=== PATIENT | female | born 1955 | race Caucasian/White ===

== ENCOUNTER → 2018-04-08 10:45 | Outpatient (CLI) | payer OTHER, SELFPAY | PROVIDERS: Family Provider Internal Medicine; PCP Internal Medicine; Referring Provider Nurse Practitioner Gerontology; Visit Provider Nurse Practitioner Gerontology | DX: R00.2 Palpitations (principal) | CPT/HCPCS: 93225; 93226 ==

== ENCOUNTER → 2018-07-11 10:07 | Outpatient (CLI) | payer OTHER, SELFPAY ==
--- NOTE | 2018-07-11 10:10 | BI_ITS ---
MAMMOGRAPHY - BILATERAL SCREENING REASON FOR EXAM: Female, 63 years old. Routine annual screening examination. PERTINENT HISTORY: Non-contributory. TECHNIQUE: Digital bilateral breast walker (3D mammographic acquisition) in the CC and MLO projections. 2-D mediolateral oblique (MLO) and craniocaudad (CC) views of both breasts were obtained. CAD: Full Field Digital Mammography with Computer Added Detection was performed. COMPARISON: Comparison is made with prior study dated June 27, 2017 and June 08, 2016. FINDINGS: Breast Composition: The breasts are heterogeneously dense, which may obscure small masses. There are no dominant masses or suspicious calcifications. Stable appearance of the benign-looking bilateral axillary lymph nodes. No other significant abnormalities are identified. There has been no significant change since the prior study. BI/SCREENING MAMM (CAD), BILAT IMPRESSION: Stable bilateral screening mammogram. Yearly follow-up mammogram recommended. (A) ASSESSMENT CATEGORY: BIRADS Category 2: Benign. A letter regarding these results will be sent to the patient by the facility within 30 days. Approximately 10% of breast cancers are not detected by mammography. A normal mammogram should not delay biopsy of a clinically suspicious abnormality. [id number] Electronically Signed: Jonathan Law MD at 12:56 EST , Service support ,
--- NOTE | 2018-07-11 10:15 | BD_ITS ---
STUDY: DUAL ENERGY X-RAY ABSORPTIOMETRY / DXA REASON FOR EXAM: Female, 63 years old. The patient is postmenopausal. No loss of height. TECHNIQUE: Bone Mineral Density (BMD) measurements of lumbar spine and bilateral hips were obtained. COMPARISON: Comparison is made with prior study dated June 08, 2015. FINDINGS: Lumbar Spine (L1-L4): g/cm2 (0.919) / T-score (-2.2) / Z-score (-0.9) Findings are suggestive of osteopenia with a high fracture risk. Left Femur Total: g/cm2 (0.781) / T-score (-1.8) / Z-score (-0.8) Left Femoral Neck: g/cm2 (0.639) / T-score (-2.9) / Z-score (-1.6) Right Femur Total: g/cm2 (0.700) / T-score (-2.4) / Z-score (-1.4) Right Femoral Neck: g/cm2 (0.605) / T-score (-3.1) / Z-score (-1.8) The T-Scores on the most recent prior examination were: Lumbar Spine (L1-L4): There has been improvement of bone density since the previous examination. Left Femur Total: which represents a worsening of 0.1%. Right Femur Total: which represents a worsening of 2.1%. BD/Dexa Bone Density Study IMPRESSION: The patient is considered osteoporotic as outlined below according to World Charly Organization (WHO) criteria with a high fracture risk. There has been worsening of bone density since the previous examination. Reference Information: The T-score is the number of standard deviations above or below the standard which is normal for young adults at their peak bone mineral density. The World Health Organization (WHO) interprets the T-scores as follows: Above -1 Normal bone density Between -1 and -2.5 Osteopenia Equal to / or below -2.5 Osteoporosis As a practical clinical guideline, osteopenia may be graded as follows: Mild -1 through -1.5 Moderate -1.6 through -2.0 Severe -2.1 through -2.4 The Z-score is the number of standard deviations above or below age-matched controls. A Z-score of less than -1.5 would be considered abnormal. References: 1. NIH Osteoporosis and Related Bone Diseases http://www.osteo.org 2. International Society for Clinical Densitometry http://www.iscd.org 3. National Osteoporosis Foundation http://www.nof.org Electronically Signed: Jonathan Law MD at 15:28 EST , Service support ,
== END ==
PROVIDERS: Family Provider Internal Medicine; PCP Internal Medicine; Referring Provider Internal Medicine; Visit Provider Internal Medicine
DX: Z78.0 Asymptomatic menopausal state (principal); Z12.31 Encounter for screening mammogram for malignant neoplasm of breast
CPT/HCPCS: 77063; 77067; 77080

== ENCOUNTER → 2018-09-10 15:22 | Outpatient (CLI) | payer OTHER, SELFPAY ==
--- NOTE | 2018-09-10 15:25 | RAD_ITS ---
STUDY: X-RAY - RIGHT SHOULDER REASON FOR EXAM: Neck and right arm pain for 1.5 weeks. TECHNIQUE: 4 view(s) of the shoulder. COMPARISON: None. FINDINGS: There is osteopenia. Normal glenohumeral articulation. There is mild acromioclavicular arthrosis. Normal acromion. Normal humeral head and visualized proximal humerus. The soft tissue structures are unremarkable. Normal visualized pulmonary apex. RAD/Shoulder min 2 Views IMPRESSION: Mild acromioclavicular arthrosis. Osteopenia. Electronically Signed: Ion Funk MD at 16:01 EDT Tel , Service support ,
--- NOTE | 2018-09-10 15:26 | RAD_ITS ---
STUDY: X-RAY - CERVICAL SPINE REASON FOR EXAM: Female, 63 years old. NECK AND RIGHT ARM PAIN TECHNIQUE: 5 view(s) of the cervical spine were obtained. COMPARISON: None FINDINGS: Normal anterior atlantoaxial articulation. Normal odontoid process. Normal cervical lordosis. There appears a small posterior disc osteophyte complex at C5-C6. There is mild uncovertebral joint hypertrophy at C4-5 C5-6 and C6-7 bilaterally . Subtle disc height loss at C5-6 noted. Mild encroachment upon the neural foramina secondary to uncovertebral joint hypertrophy is noted on the right at C4-5 and C5-6. The soft tissue structures are unremarkable. There appear surgical tacks associated with the left humerus. RAD/Cerv Spine 4 or 5 Views IMPRESSION: Degenerative spondylosis as described. There does appear uncovertebral joint hypertrophy asymmetric to the right at C4-5 and C5-6. Electronically Signed: Norah Kay MD at 11:04 EDT , Service support ,
== END ==
PROVIDERS: Family Provider Internal Medicine; PCP Internal Medicine; Referring Provider Nurse Practitioner; Visit Provider Nurse Practitioner
DX: M54.9 Dorsalgia, unspecified (principal); M25.511 Pain in right shoulder
CPT/HCPCS: 72050; 73030

== ENCOUNTER 2019-07-30 16:22 | Observation (INO) | payer OTHER, SELFPAY ==
[2018-10-07 12:30] VITALS: BMI 27.1
[2019-07-30] VITALS (15 sets, daily range): BP systolic 136–202; BP diastolic 70–97; PULSE 61–77; RESP 16–19; TEMP 36.4–36.6; O2SAT 96–99; BMI 28.1; BMI 22.7
--- NOTE | 2019-07-30 16:34 | RAD_ITS ---
STUDY: X-RAY CHEST REASON FOR EXAM: Female, 64 years old. STERNAL CHEST PAIN. TECHNIQUE: Single AP portable view of the chest. COMPARISON: None. FINDINGS: The lungs are clear and expanded. There is no demonstrated pleural abnormality. Normal size heart. Normal mediastinum and emerson. Normal visualized pulmonary arteries. Normal visualized aortic arch and descending thoracic aorta. Normal visualized thoracic spine. Normal visualized ribs, clavicles, and shoulders. There is no demonstrated abnormality of the visualized soft tissue structures of the upper abdomen. RAD/Chest 1 View (Portable) IMPRESSION: Normal x-ray examination of the chest. Electronically Signed: Ananth Yu MD at 16:59 EST Tel , Service support ,
--- NOTE | 2019-07-30 16:35 | EKG12_ITS ---
Test Reason : CP Blood Pressure : / mmHG Vent. Rate : 069 BPM Atrial Rate : 069 BPM P-R Int : 134 ms QRS Dur : 086 ms QT Int : 422 ms P-R-T Axes : 012 018 010 degrees QTc Int : 452 ms Normal sinus rhythm Nonspecific ST abnormality Abnormal ECG Confirmed by CANDACE LAMAR, ISAIAH ([id number]), video effects editor ALENA MESA ([id number]) on 08/01/2019 8:02:15 AM Referred By: GAGAN Confirmed By:LIBRADO MARIA MD
--- NOTE | 2019-07-30 16:35 | ED.DCSUM_ITS ---
- ER Visit Summary Date of Service: 07/30/19 Chief Complaint: Chest pain History of Present Illness: The patient is a 64 F who presents with chest pain began today. Patient states her pain feels like a heaviness over her upper chest. Patient admits to nausea but denies any vomiting. Patient denies any sh ortness of breath or diaphoresis. Patient does admit to some lightheadedness and dizziness. Patient also admits to some palpitations where she feels like her heart is racing. Patient states nothing makes it better or worse. Patient states she was able to take a nap this morning and her pain improved at that time. Patient states she went back to work and her pain became worse again. Physical Examination: Vital signs are stable except for an elevated blood pressure of 202/97. Patient is afebrile. Patient is in no acute distress. Oral mucosa is pink and moist. Neck is supple. Trachea is midline. There is no JVD. Heart was regular rate and rhythm. Lungs are clear and equal bilaterally. Abdomen is soft. Bowel sounds are normal. There is no tenderness. Cranial nerves II through XII are intact. There are no focal motor or sensory deficits noted. Extremities are intact. There is no calf tenderness or edema. Test Results: EKG shows normal sinus rhythm with a rate of 69. There are nonspecific ST-T wave changes. This was unchanged compared to previous EKG dated 04/26/2012. CBC, basic metabolic profile, and troponin were obtained were within normal limits. Portable chest x-ray was obtained. There is no acute cardiopulmonary process. This was interpreted by the radiologist and myself. Emergency Department Course and Treatment: Patient was given aspirin and sublingual nitroglycerin here. Patient's blood pressure improved to 169/84. Patient is chest pain improved. Patient has a HEART score of 4 and a GIANLUCA risk score of 1. Case was discussed with the hospitalist. Patient will be admitted for observation to the PCU. Patient understands and is agreeable with the plan. All questions were answered. Disposition: Admit to hospital Impression: Chest pain This note was generated with [employer] dictation software. It may contain incorrect words, spelling, and punctuation that were not noted in review of the chart prior to signing ED Disposition - Plan for ED Patient: Disposition: Acute Care Hospital [facility] Diagnosis: Chest pain Referrals: Karen Jessica DO [Primary Care Provider] -
[2019-07-30] MEDS: Aspirin 81 MG TAB.CHEW 324 MG PO (16:46)
[2019-07-30 16:58] LABS: Absolute Lymphocyte Count 3.07 X10^3/uL (0.83-4.51); Absolute Neutrophil Count 4.1 X10^3/uL (2.0-7.7); Basophil% 1.2 % (0-1); Eosinophil# 0.36 X10^3/uL; Eosinophils% 4.3 % (0-5); Hematocrit 42.1 % (37-47); Hemoglobin 14.3 g/dL (12.0-15.0); Lymphocyte # 3.07 X10^3/ul (4.0); Lymphocyte % 36.2 % (19-41); Mean Corpuscular Hgb 29.9 pg (27.0-32.0); Mean Corpuscular Volume 87.9 fL (81-99); Mean Platelet Vol. 9.5 fl (6.2-12.0); Monocyte# 0.78 X10^3/uL; Monocyte% 9.2 % (0-10); NRBC Flagged by Analyzer 0 % (0-5); Neutrophil # 4.13 X10^3/uL (2.7-7.7); Neutrophil % 48.7 % (47-70); Platelet Count 349 K/mm3 (150-450); RBC Distribution Width CV 13.2 % (11.6-14.6); RBC Distribution Width SD 42.5 fl (35.1-43.9); Red Blood Count 4.79 M/mm3 (4.2-5.4); White Blood Count 8.5 K/mm3 (4.4-11.0)
[2019-07-30 17:11] LABS: Anion Gap 4 (5-15); BUN 16 mg/dL (7-18); BUN/Creat Ratio 16.8 RATIO (10-20); Calcium,Total 9.4 mg/dL (8.5-10.1); Chloride 105 mmol/L (98-107); Creatinine, Serum 0.95 mg/dL (0.55-1.02); EST Glomerular Filtration Rate 63 mL/min (>60); Est Glom Filt Rate - Afr Amer 76 mL/min (>60); Estimated Creatinine Clearance 46.33 ml/min; Glucose 88 mg/dL (74-106); Potassium 3.8 mmol/L (3.5-5.1); Sodium Level 139 mmol/L (136-145)
[2019-07-30] MEDS: Nitroglycerin SL (ED/IMG/CATH) 0.4 MG TABLET SUBLINGUAL (17:33)
--- NOTE | 2019-07-30 18:38 | HP.PCM_ITS ---
History of Present Illness Date of Admission: 07/30/19 Chief Complaint: Chest pressure The patient is a 64 year old F with past medical history of depression and hypothyroidism. She was admitted through the ED on 07/30/2019 with a complaint of chest pain and pressure which started in the early hours of the day of admission. She described pain as right-sided, pressure-like, radiating up to the right side of her face, with waiting or relieving factors. She had associated lightheadedness and dizziness. 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 She is never had such chest pain before and has never had any heart issues. She does not have any long distance travel history and has never had any PE or DVT before. Admission in the ED, she was noted to have markedly elevated blood pressure with systolic being over 200. She states she does have a history of high blood pressure and her blood pressure was checked recently at her PCPs office and was in the normal range around 120 systolic. Vitals were otherwise stable. Initial troponin was negative and EKG showed no acute ST changes. CBC and BMP were unremarkable and chest x-ray showed no acute cardiopulmonary process. She has been admitted to be managed for chest pain rule out ACS. [] Past Medical History Allergies No Known Allergies Allergy (Verified 10/04/18 07:51) Home Medications: Ambulatory Orders Medication Instructions Recorded Celecoxib [Celebrex] 200 mg PO DAILY 07/30/19 Duloxetine Hcl [Cymbalta] 40 mg PO DAILY 07/30/19 Levothyroxine [Synthroid] 75 mcg PO DAILY 07/30/19 Surgical History: appendectomy, hysterectomy, - - Carpal tunnel surgery, shoulder surgery Psychiatric History: No pertinent psych hx [employer] ATTENDANT History: No pertinent B[employer] ATTENDANT history Lives: Spouse/ Significant Other Smoking Status: Never smoker Alcohol: None Drugs: None - *Family History Maternal History Items: Heart Disease, Hypertension Paternal History Items: Heart Disease Review of Systems Constitutional: Denies: Chills, Fever, Malaise, Weakness, Weight Change Eyes: Denies: Blurred vision HEENT: Denies: Head Aches, Sinus Congestion, Sinus Drainage Cardiovascular: Reports: Chest Pain, Chest Pressure, Heaviness, Light Headedness. Denies: Chest Tightness, Edema, Orthopnea, Palpitations, Syncope Respiratory: Denies: Cough, Shortness of Breath, Shortness of breath at rest, Shortness of breath upon exertion, Sputum production Gastrointestinal: Denies: Abdominal Pain, Nausea, Vomiting Genitourinary: Denies: Dysuria Musculoskeletal: Denies: Joint Pain, Joint Tenderness Skin: Denies: Rash, Wounds Neurological: Denies: Numbness, Tingling, Focal weakness Psychiatric: Denies: Anxiety, Depression, Homicidal Ideations, Suicidal Ideations Hematologic/ Lymphatic: Denies: Easy Bruising, Easy Bleeding VTE Information - Inpt Only VTE Present on Admission: No VTE Pharm Prophylaxis ordered?: Yes Patient Problems: Active and Suspected Problems Chest pain (Acute) - Physical Exam Vitals/I&O's: Vital Signs Temp Pulse Resp BP Pulse Ox 97.6 F L 74 16 161/85 H 98 07/30/19 16:23 07/30/19 17:53 07/30/19 17:53 07/30/19 17:53 07/30/19 17:53 Oxygen Delivery Method Room Air Weight: 149 lb 0.52 oz Body Mass Index (BMI) 28.1 General: Alert, Oriented x3, Cooperative, No apparent distress HEENT: Atraumatic, PERRLA, EOMI, Normocephalic Oral: Moist Mucosa Neck: Supple, No JVD, Negative Carotid Bruits Lungs: Clear to auscultation, Normal air movement, No rhonchi, No wheeze, No rales Cardiovascular: Regular rate, Regular Rhythm, Normal S1, Normal S2, No murmurs Abdomen: Bowel Sounds Present, Soft, Non Tender, Non-Distended, No Hepato- splenomegaly Extremities: No clubbing, No cyanosis, No edema, Capillary Refill Less than 3 Seconds Skin: No rashes, No breakdown Musculoskeletal: No Tenderness to Palpation of Joints or Extremities Lymphatic: No Cervical, Supraclavicular, or Inguinal Adenopathy Neurological: Cranial nerves II-XII grossly intact, Neuro grossly intact, Motor Exam 5/5 strength throughout Psych/Mental Status: Normal Affect, Appropriate, Alert and oriented to time, place, person, mood and affect Laboratory Results 07/30/19 16:38: WBC 8.5, RBC 4.79, Hgb 14.3, Hct 42.1, MCV 87.9, MCH 29.9, MCHC 34.0, RDW Std Deviation 42.5, RDW Coeff of Linda 13.2, Plt Count 349, MPV 9.5, Immature Gran % (Auto) 0.400, Neut % (Auto) 48.7, Lymph % (Auto) 36.2, Ray % (Auto) 9.2, Eos % (Auto) 4.3, Baso % (Auto) 1.2 H, Absolute Neuts (auto) 4.1, Absolute Lymphs (auto) 3.07, Nucleated RBC % 0 07/30/19 16:38: Sodium 139, Potassium 3.8, Chloride 105, Carbon Dioxide 30.0, Anion Gap 4 L, BUN 16, Creatinine 0.95, Estim Creat Clear Calc 46.33, Est GFR (MDRD) Af Amer 76, Est GFR (MDRD) Non-Af 63, BUN/Creatinine Ratio 16.8, Glucose 88, Calcium 9.4, Troponin I < 0.015 Diagnostic Data Chest X-Ray 07/30/19 16:34 IMPRESSION: Normal x-ray examination of the chest. Electronically Signed: Ananth Yu MD at 16:59 EST Tel , Service support , Current Medications Nitroglycerin (Nitrostat) 0.4 mg SUBLINGUAL Q5M PRN PRN Reason: Chest pain Last Admin: 07/30/19 17:33 Dose: 0.4 mg Documented by: Assessment/Plan All Active Problems Chest pain (Acute) 64 y/o admitted with a complaitn of chest pain, to r/o ACS 1. Chest pain to r.o ACS * Admit to PCU with telemetry. Initial troponin is negative. We will cycle. * Sublingual nitroglycerin as needed. P.o. aspirin 81 mg daily. * She does have a history of heart disease in both parents. 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 * Troponins remain negative, for stress test tomorrow. * 2. Hypertensive emergency: * Blood pressure was 202/97 and in association with chest pain, she qualifies with diagnosis of hypertensive emergency * Patient says she is not a known hypertensive and her blood pressure is usually well controlled. Blood pressure came down to around 170 after she was given sublingual nitroglycerin. * IV hydralazine PRN. If blood pressure does not trend downwards, will need to be started on BP medications by tomorrow. * Will get 2D echo. 3. Hypothyroidism: On Synthroid. 4. Depression: on Cymbalta. DVT prophylaxis: SCDs Code Visit OBSV E&M: [id number] Initial observation care L2
--- NOTE | 2019-07-30 19:19 | EKG12_ITS ---
Test Reason : CP ADMIT Blood Pressure : / mmHG Vent. Rate : 063 BPM Atrial Rate : 063 BPM P-R Int : 136 ms QRS Dur : 086 ms QT Int : 442 ms P-R-T Axes : 015 031 013 degrees QTc Int : 452 ms Normal sinus rhythm Normal ECG When compared with ECG of 30-JUL-2019 16:25, MANUAL COMPARISON REQUIRED, DATA IS UNCONFIRMED Confirmed by BRO REYEZ ([id number]), index editor ALENA MESA ([id number]) on 08/01/2019 1:16:42 PM Referred By: DR VALERO Confirmed By:BRO REYEZ
[2019-07-30 19:38] LABS: Cholesterol 233 mg/dL (200); High Density Lipoprotein 52 mg/dL; Triglycerides 123 mg/dL; Very Low Density Lipoprotein 25 mg/dL (5-40)
[2019-07-30] MEDS: Nitroglycerin (INPATIENT USE) 0.4 MG TAB.SUBL SUBLINGUAL (20:24)
[2019-07-30] MEDS: DULoxetine Hcl 20 MG Capsule 40 MG PO (21:30)
[2019-07-30] MEDS: Metoprolol Tartrate 25 MG Tablet 12.5 MG PO (21:31)
[2019-07-30] MEDS: MELATONIN 3 MG TABLET PO (23:17)
[2019-07-31] VITALS (10 sets, daily range): BP systolic 127–170; BP diastolic 70–83; PULSE 59–71; RESP 14–16; TEMP 36.3–36.8; O2SAT 93–97
[2019-07-31] MEDS: Levothyroxine 75 MCG Tablet PO (05:43)
[2019-07-31] MEDS: 0.9% Saline Lock 10 ML Syringe IV (05:44)
[2019-07-31] MEDS: Aspirin E.C. 81 MG Tablet PO (05:44)
[2019-07-31 05:45] LABS: Absolute Lymphocyte Count 2.33 X10^3/uL (0.83-4.51); Absolute Neutrophil Count 3.7 X10^3/uL (2.0-7.7); Basophil# 0.07 X10^3/uL; Eosinophils% 5.6 % (0-5); Hematocrit 43.3 % (37-47); Hemoglobin 14.2 g/dL (12.0-15.0); Lymphocyte # 2.33 X10^3/ul (4.0); Lymphocyte % 32.6 % (19-41); Mean Corp Hgb Conc 32.8 g/dL (32-36); Mean Corpuscular Hgb 29.1 pg (27.0-32.0); Mean Corpuscular Volume 88.7 fL (81-99); Mean Platelet Vol. 9.7 fl (6.2-12.0); Monocyte# 0.62 X10^3/uL; Monocyte% 8.7 % (0-10); NRBC Flagged by Analyzer 0 % (0-5); Neutrophil # 3.67 X10^3/uL (2.7-7.7); Neutrophil % 51.4 % (47-70); Platelet Count 326 K/mm3 (150-450); RBC Distribution Width CV 13.2 % (11.6-14.6); RBC Distribution Width SD 43.1 fl (35.1-43.9); Red Blood Count 4.88 M/mm3 (4.2-5.4); White Blood Count 7.1 K/mm3 (4.4-11.0)
--- NOTE | 2019-07-31 05:55 | ECHOD_ITS ---
Reason For Study: CHEST PAIN Procedure This was a 2D Doppler, Color Flow transthoracic echocardiogram. Exam performed in department. Left Ventricle Normal LV size. The estimated ejection fraction is 65 %. Normal diastology for age. No regional wall motion abnormalities noted. Right Ventricle Normal RV size. Normal systolic function. Atria Normal left atrium. Normal right atrium. No doppler evidence for ASD. Mitral Valve There is no mitral valve stenosis. No mitral valve insufficiency. Tricuspid Valve There is no tricuspid stenosis. Unable to estimate RV systolic pressure due to inadequate jet, pulmonary artery pressure probably normal. No tricuspid valve insufficiency. Aortic Valve Trisinus/trileaflet aortic valve. There is no aortic stenosis. No aortic valve insufficiency. Pulmonic Valve There is no pulmonic valvular stenosis. No pulmonic valve insufficiency. Great Vessels Normal aortic root. Pericardium/Pleural No pericardial effusion. MMode/2D Measurements & Calculations LVIDd: 3.7 cm IVSd: 0.96 cm Ao root diam: 3.2 cm LVIDs: 2.0 cm LVPWd: 1.0 cm RVDd: 2.6 cm FS: 44.9 % LAV(MOD-bp): 30.2 ml LA A4 area: 13.0 cm2 LA dimension(2D): 3.4 cm LAV(MOD-bp) Indexed: 17.1 ml/m2 LAV(MOD-sp2): 28.0 ml LAV(MOD-sp4): 31.7 ml RA A4 area: 9.9 cm2 Time Measurements MV dec time: 0.17 sec Doppler Measurements & Calculations MV E max emerson: 69.7 cm/sec Lat Peak E' Emerson: 5.0 cm/sec Med Peak E' Emerson: 6.6 cm/sec MV A max emerson: 84.5 cm/sec E/E' lat: 14.0 E/E' med: 10.6 MV E/A: 0.83 Ao V2 max: 96.8 cm/sec LV V1 max: 96.3 cm/sec PA V2 max: 135.9 cm/sec Ao max P.7 mmHg LV V1 max P.7 mmHg Interpretation Summary The estimated ejection fraction is 65 %. Normal diastology for age. Ordering Physician: Barby Bucio Referring Physician: Karen Jessica Performed By: Nancy Henry, OSVALDO, RVT
[2019-07-31 06:08] LABS: Anion Gap 5 (5-15); BUN 16 mg/dL (7-18); BUN/Creat Ratio 18.5 RATIO (10-20); Calcium,Total 8.8 mg/dL (8.5-10.1); Chloride 108 mmol/L (98-107); Creatinine, Serum 0.86 mg/dL (0.55-1.02); EST Glomerular Filtration Rate 71 mL/min (>60); Est Glom Filt Rate - Afr Amer 86 mL/min (>60); Estimated Creatinine Clearance 65.96 ml/min; Glucose 94 mg/dL (74-106); Magnesium 2.4 mg/dL (1.6-2.6); Sodium Level 142 mmol/L (136-145)
--- NOTE | 2019-07-31 11:57 | DCINST_ITS ---
- Discharge Diagnoses Current Active Problems: Current Active and Chronic Problems Chest pain (Acute) You will use the following diet at home:: No restrictions Discharge Activity: Return to Normal Activity Call your doctor if you observe: Shortness of breath, Dizziness, Fainting spells, Chest pain Allergies/Adverse Reactions: Allergies No Known Allergies Allergy (Verified 10/04/18 07:51) Medications to take at Discharge Celecoxib [Celebrex] 200 mg PO DAILY 07/30/19 Duloxetine Hcl [Cymbalta] 40 mg PO DAILY 07/30/19 Levothyroxine [Synthroid] 75 mcg PO DAILY 07/30/19 Primary Care Physician: Karen Jessica DO [Primary Care Provider] - Please follow up with your Primary Care Physician in: 1 Week Test Results: Test results from this visit will be discussed in further detail at your follow- up appointment, if applicable. Proposed Discharge Date: 07/31/19
[2019-07-31] MEDS: Acetaminophen 325 MG Tablet 650 MG PO (12:45)
[2019-07-31] MEDS: Metoprolol Tartrate 25 MG Tablet 12.5 MG PO (12:46)
--- NOTE | 2019-07-31 14:18 | STRESSREP ---
Stress Test Report Date: [07/31/19 ] Procedure: Exercise tolerance test/imaging study Indications: [chest pain] Consent: Per the patient Procedure: The patient exercised on a Perico protocol for [11 minutes] achieving a peak heart rate of [164] bpm ([103]% predicted maximal heart rate) with a peak blood pressure [150/96] mmHg and a peak MET capacity of [13.3] METs. The baseline ECG demonstrated [normal sinus rhythm]. The peak exercise ECG demonstrated no significant ischemic changes. EKG during recovery revealed no significant ischemic changes [There were no cardiac dysrhythmias pretest, during exercise, or recovery]. The functional capacity was considered excellent for age. There was [no complaint of chest discomfort during exercise or recovery]. The examination was discontinued secondary to achieving target heart rate. Impression: 1. Technically adequate (percent predicted maximal heart rate greater than 85%) exercise tolerance test 2. Stress test is negative for exercise-induced EKG changes of ischemia 3. The test test is negative for exercise-induced chest pain 4. Functional capacity is excellent for age 5. Nuclear images pending Myocardial perfusion imaging study: Technique: The patient was injected with 12 mCi of technetium 99m Cardiolite and subsequently rest SPECT Cardiolite nuclear imaging was obtained in the horizontal long, vertical long, and short axis views. The patient exercised on a Perico protocol. Please see above for details. The patient was injected with 36 mCi of technetium 99m Cardiolite and subsequently stress SPECT Cardiolite nuclear imaging was obtained in the horizontal long, vertical long, and short axis views. A gated Cardiolite study at peak stress was obtained. Interpretation: Rest and stress SPECT Cardiolite nuclear imaging status post realignment, normalization, and attenuation correction, demonstrates normal myocardial radioisotope uptake. The gated Cardiolite study demonstrates no significant regional wall motion abnormalities. The reported LVEF is greater than 70 %. Impression: 1. There is no evidence of significant ischemia or infarction. 2. The gated Cardiolite study reports an LVEF of greater than 70 %. This note was generated with SnapNamesation software. It may contain incorrect words, spelling, and punctuation that were not noted in checking the note before signing.
--- NOTE | 2019-07-31 14:28 | DS.PCM_ITS ---
<Carla Hurt - Last Filed: 07/31/19 14:39> Discharge Date and Diagnosis Date of Admission: 07/30/19 Date of Discharge: 07/31/19 - Primary Discharge Diagnosis Active and Suspected Problems 1. Chest pain, ACS ruled out 2. Hyperlipidemia 3. Hypertensive urgency on admission, resolved 4. Depression 5. Hypothyroidism Hospital Course and Treatment Imaging Results: Diagnostic Data Chest X-Ray 07/30/19 16:34 IMPRESSION: Normal x-ray examination of the chest. Electronically Signed: Ananth Yu MD at 16:59 EST Tel , Service support , Operations: None Procedures: 2-D Echocardiogram, Stress test Summary of Care Provided: The patient is a 64 year old F admitted 07/30/2019 due to chest pressure. 1. Chest pain, ACS ruled out-troponin negative. EKG without ST-T changes. Stress test demonstrated EF 70%, no evidence of ischemia or infarction. Echocardiogram pending and will be reviewed prior to discharge. Cardiac etiology ruled out. Follow-up with PCP in 1 week. 2. Hyperlipidemia-total cholesterol 233, LDL 156. Recommend diet control and repeat lipid panel in 4 to 6 weeks by primary care provider. If lipid panel remains elevated, may require addition of statin. 3. Hypertensive urgency on admission, resolved-blood pressure on admission 202/97. Patient's blood pressure intermittently elevated during admission. Blood pressure stable at discharge, 127/71. Recommend patient check blood pressure twice daily, morning and night and report findings to primary care provider to decide if antihypertensive needs to be initiated as outpatient. Currently feel elevated blood pressure was situational given acute presentation. 4. Depression-continue home duloxetine regimen. 5. Hypothyroidism-continue home Synthroid regimen. Patient seen and examined prior to discharge. Physical assessment as noted above. Patient is stable for discharge with follow up recommendations as noted above. This patient was seen by ADILENE Gaitan under the supervision of Dr. Chen. - Physical Exam Vitals/I&O's: Vital Signs Temp Pulse Resp BP Pulse Ox 98.2 F 65 14 127/71 H 97 07/31/19 14:12 07/31/19 14:12 07/31/19 14:12 07/31/19 14:12 07/31/19 14:12 Oxygen Delivery Method Room Air Weight: 145 lb 1.027 oz Body Mass Index (BMI) 22.7 Intake and Output for Last 24 Hours 07/29/19 07/30/19 07/31/19 23:59 23:59 23:59 Intake Total 100 / 100 0 / 0 Balance 100 / 100 0 / 0 General: Alert, Oriented x3, Cooperative HEENT: Atraumatic, PERRLA, EOMI, Normocephalic Neck: Supple, No JVD, Negative Carotid Bruits Lungs: Clear to auscultation, Normal air movement Cardiovascular: Regular rate, Regular Rhythm, Normal S1, Normal S2, No murmurs Abdomen: Bowel Sounds Present, Soft, Non Tender, Non-Distended Extremities: No clubbing, No cyanosis, No edema, Capillary Refill Less than 3 Seconds Skin: No rashes, No breakdown Musculoskeletal: No Tenderness to Palpation of Joints or Extremities Neurological: Cranial nerves II-XII grossly intact, Neuro grossly intact Psych/Mental Status: Normal Affect, Appropriate Laboratory Results 07/30/19 16:38: WBC 8.5, RBC 4.79, Hgb 14.3, Hct 42.1, MCV 87.9, MCH 29.9, MCHC 34.0, RDW Std Deviation 42.5, RDW Coeff of Linda 13.2, Plt Count 349, MPV 9.5, Immature Gran % (Auto) 0.400, Neut % (Auto) 48.7, Lymph % (Auto) 36.2, [place] % (Auto) 9.2, Eos % (Auto) 4.3, Baso % (Auto) 1.2 H, Absolute Neuts (auto) 4.1, Absolute Lymphs (auto) 3.07, Nucleated RBC % 0 07/30/19 16:38: Sodium 139, Potassium 3.8, Chloride 105, Carbon Dioxide 30.0, Anion Gap 4 L, BUN 16, Creatinine 0.95, Estim Creat Clear Calc 46.33, Est GFR (MDRD) Af Amer 76, Est GFR (MDRD) Non-Af 63, BUN/Creatinine Ratio 16.8, Glucose 88, Calcium 9.4, Troponin I < 0.015 07/30/19 16:38: Triglycerides 123, Cholesterol 233 H, LDL Cholesterol 156 H, VLDL Cholesterol 25, HDL Cholesterol 52 07/30/19 20:08: Troponin I < 0.015 07/30/19 22:46: Troponin I < 0.015 07/31/19 05:10: WBC 7.1, RBC 4.88, Hgb 14.2, Hct 43.3, MCV 88.7, MCH 29.1, MCHC 32.8, RDW Std Deviation 43.1, RDW Coeff of Linda 13.2, Plt Count 326, MPV 9.7, Immature Gran % (Auto) 0.700, Neut % (Auto) 51.4, Lymph % (Auto) 32.6, [place] % (Auto) 8.7, Eos % (Auto) 5.6 H, Baso % (Auto) 1.0, Absolute Neuts (auto) 3.7, Absolute Lymphs (auto) 2.33, Nucleated RBC % 0 07/31/19 05:10: Sodium 142, Potassium 4.0, Chloride 108 H, Carbon Dioxide 29.0, Anion Gap 5, BUN 16, Creatinine 0.86, Estim Creat Clear Calc 65.96, Est GFR (MDRD) Af Amer 86, Est GFR (MDRD) Non-Af 71, BUN/Creatinine Ratio 18.5, Glucose 94, Calcium 8.8, Magnesium 2.4 Current Medications Acetaminophen (Tylenol) 650 mg PO Q6H PRN PRN PRN Reason: Pain Score 1-10/Temp > 100.7 F Last Admin: 07/31/19 12:45 Dose: 650 mg Documented by: Aspirin (Ecotrin) 81 mg PO DAILY@0800 [facility] Last Admin: 07/31/19 05:44 Dose: 81 mg Documented by: Dextrose (D50w Syringe) 0 gm IV X1 PRN; Protocol PRN Reason: Hypoglycemia Duloxetine HCl (Cymbalta) 40 mg PO DAILY [facility] Last Admin: 07/31/19 11:00 Dose: Not Given Documented by: Enoxaparin Sodium (Lovenox) 40 mg SC DAILY [facility] Last Admin: 07/31/19 11:00 Dose: Not Given Documented by: Glucagon () 1 mg IM .X1 PRN PRN Reason: Hypoglycemia Hydralazine HCl (Apresoline Iv) 10 mg IV Q6H PRN PRN PRN Reason: BLOOD PRESSURE ELEVATION Sodium Chloride () 250 mls @ 15 mls/hr IV .[id number] PRN PRN Reason: Saline Flush Sodium Chloride () 250 mls @ 15 mls/hr IV .[id number] PRN PRN Reason: Additional IVPB Infusion Levothyroxine Sodium (Synthroid) 75 mcg PO DAILY@0600 [facility] Last Admin: 07/31/19 05:43 Dose: 75 mcg Documented by: Melatonin (Melatonin) 3 mg PO QHS [facility] Last Admin: 07/30/19 23:17 Dose: 3 mg Documented by: Metoprolol Tartrate (Lopressor (Beta Marlene)) 12.5 mg PO BID [facility] Last Admin: 07/31/19 12:46 Dose: 12.5 mg Documented by: Morphine Sulfate () 2 mg IV Q3H PRN PRN PRN Reason: Pain Score 6-10/10 Nitroglycerin (Nitrostat) 0.4 mg SUBLINGUAL Q5M PRN PRN Reason: CARDIAC/CHEST PAIN Last Admin: 07/30/19 20:24 Dose: 0.4 mg Documented by: Ondansetron HCl (Zofran) 4 mg IV Q8H PRN PRN PRN Reason: NAUSEA/VOMITING Oxycodone HCl (Oxyir) 5 mg PO Q4H PRN PRN PRN Reason: Pain Score 6-10/10 Sodium Chloride () 10 - 40 ml IV UD PRN PRN Reason: SALINE FLUSH Last Admin: 07/31/19 05:44 Dose: 10 ml Documented by: Discharge Diet: No Restrictions Call your doctor if you observe: Shortness of breath, Dizziness, Fainting spells, Chest pain Home Medications: Medications to take at Discharge Celecoxib [Celebrex] 200 mg PO DAILY 07/30/19 Duloxetine Hcl [Cymbalta] 40 mg PO DAILY 07/30/19 Levothyroxine [Synthroid] 75 mcg PO DAILY 07/30/19 Primary Care Physician: Karen Jessica DO [Primary Care Provider] - Please follow up with your Primary Care Physician in: 1 Week Disposition: Home Minutes spent on discharge:: 35 Patient Condition:: Stable Medical Necessity - Tobacco Use Smoking Status: Never smoker Meaningful Use Info Meaningful Use Diagnoses (Choose all that apply): None applicable <Brian Chen - Last Filed: 07/31/19 15:13> Hospital Course and Treatment Summary of Care Provided: This patient was seen in conjunction with JIG BORER, Carla. I have independently interviewed and examined the patient and reviewed pertinent history, examination findings, laboratory and plan of management. I have reviewed the note and agree with the documented findings with the few additional points. In brief, patient is admitted for chest pain along with hypertensive emergency. Blood pressure on admission 202/97. Currently blood pressure is controlled. Exact etiology of high blood pressure unclear as patient stated she had normal blood pressure in doctor's office, exercise regularly 5-6 times a week. Currently she is reluctant to take blood pressure antihypertensive medication and blood pressure is also stable at 127/71. Advised to check blood pressure twice daily and follow with PCP Dr. Jessica and start antihypertensive medication, if indicated, blood pressure more than 130/80, persistently on 2-3 occasions. Patient also admitted that she takes a lot of salt in food. Advised salt restriction. Serial troponin enzymes are negative. EKG does not show acute/dynamic ST-T changes suggestive of ischemia. Nuclear exercise stress test was done and and found no evidence of ischemia or infarction. Acute coronary syndrome ruled out. Fasting blood shows total cholesterol 233, LDL 136. Patient will need statin and atorvastatin 40 daily at bedtime sent to patient's pharmacy. Other comorbidities as mentioned below. Discharge medication reconciliation done. Discharge follow-up instructions completed. Discharge process discussed with the patient and her near the bedside and all questions were answered to patient's satisfaction. Total time spent, exact 35 minutes on discharge meds reconciliation, examination, coordination of care with nurses and ancillary staff, review of imaging and blood test and discussion with the patient on follow-up instructions I have discussed my assessment with Carla ESCALONA and orders have been reviewed. [] Subjective: Seen and examined. Patient does not have chest pain or shortness of breath. Yesterday was admitted with sudden onset of chest pain and hypertensive emergency, blood pressure 202/97 with mild shortness of breath. - Physical Exam Vitals/I&O's: Vital Signs Temp Pulse Resp BP Pulse Ox 98.2 F 65 14 127/71 H 97 07/31/19 14:12 07/31/19 14:12 07/31/19 14:12 07/31/19 14:12 07/31/19 14:12 Oxygen Delivery Method Room Air Weight: 145 lb 1.027 oz Body Mass Index (BMI) 22.7 Intake and Output for Last 24 Hours 07/29/19 07/30/19 07/31/19 23:59 23:59 23:59 Intake Total 100 / 100 0 / 0 Balance 100 / 100 0 / 0 General: Alert, Oriented x3, Cooperative HEENT: Atraumatic, PERRLA, EOMI, Normocephalic Neck: Supple, No JVD, Negative Carotid Bruits Lungs: Clear to auscultation, Normal air movement, No rhonchi, No wheeze, No rales Cardiovascular: Regular rate, Regular Rhythm, Normal S1, Normal S2, No murmurs Abdomen: Bowel Sounds Present, Soft, Non Tender, Non-Distended Extremities: No edema, Capillary Refill Less than 3 Seconds Skin: No rashes, No breakdown Musculoskeletal: No Tenderness to Palpation of Joints or Extremities, Arthritic Changes Neurological: Cranial nerves II-XII grossly intact Psych/Mental Status: Normal Affect, Appropriate Laboratory Results 07/30/19 16:38: WBC 8.5, RBC 4.79, Hgb 14.3, Hct 42.1, MCV 87.9, MCH 29.9, MCHC 34.0, RDW Std Deviation 42.5, RDW Coeff of Linda 13.2, Plt Count 349, MPV 9.5, Immature Gran % (Auto) 0.400, Neut % (Auto) 48.7, Lymph % (Auto) 36.2, [place] % (Auto) 9.2, Eos % (Auto) 4.3, Baso % (Auto) 1.2 H, Absolute Neuts (auto) 4.1, Absolute Lymphs (auto) 3.07, Nucleated RBC % 0 07/30/19 16:38: Sodium 139, Potassium 3.8, Chloride 105, Carbon Dioxide 30.0, Anion Gap 4 L, BUN 16, Creatinine 0.95, Estim Creat Clear Calc 46.33, Est GFR (MDRD) Af Amer 76, Est GFR (MDRD) Non-Af 63, BUN/Creatinine Ratio 16.8, Glucose 88, Calcium 9.4, Troponin I < 0.015 07/30/19 16:38: Triglycerides 123, Cholesterol 233 H, LDL Cholesterol 156 H, VLDL Cholesterol 25, HDL Cholesterol 52 07/30/19 20:08: Troponin I < 0.015 07/30/19 22:46: Troponin I < 0.015 07/31/19 05:10: WBC 7.1, RBC 4.88, Hgb 14.2, Hct 43.3, MCV 88.7, MCH 29.1, MCHC 32.8, RDW Std Deviation 43.1, RDW Coeff of Linda 13.2, Plt Count 326, MPV 9.7, Immature Gran % (Auto) 0.700, Neut % (Auto) 51.4, Lymph % (Auto) 32.6, [place] % (Auto) 8.7, Eos % (Auto) 5.6 H, Baso % (Auto) 1.0, Absolute Neuts (auto) 3.7, Absolute Lymphs (auto) 2.33, Nucleated RBC % 0 07/31/19 05:10: Sodium 142, Potassium 4.0, Chloride 108 H, Carbon Dioxide 29.0, Anion Gap 5, BUN 16, Creatinine 0.86, Estim Creat Clear Calc 65.96, Est GFR (MDRD) Af Amer 86, Est GFR (MDRD) Non-Af 71, BUN/Creatinine Ratio 18.5, Glucose 94, Calcium 8.8, Magnesium 2.4 Current Medications Acetaminophen (Tylenol) 650 mg PO Q6H PRN PRN PRN Reason: Pain Score 1-10/Temp > 100.7 F Last Admin: 07/31/19 12:45 Dose: 650 mg Documented by: Aspirin (Ecotrin) 81 mg PO DAILY@0800 [facility] Last Admin: 07/31/19 05:44 Dose: 81 mg Documented by: Dextrose (D50w Syringe) 0 gm IV X1 PRN; Protocol PRN Reason: Hypoglycemia Duloxetine HCl (Cymbalta) 40 mg PO DAILY [facility] Last Admin: 07/31/19 11:00 Dose: Not Given Documented by: Enoxaparin Sodium (Lovenox) 40 mg SC DAILY [facility] Last Admin: 07/31/19 11:00 Dose: Not Given Documented by: Glucagon () 1 mg IM .X1 PRN PRN Reason: Hypoglycemia Hydralazine HCl (Apresoline Iv) 10 mg IV Q6H PRN PRN PRN Reason: BLOOD PRESSURE ELEVATION Sodium Chloride () 250 mls @ 15 mls/hr IV .[id number] PRN PRN Reason: Saline Flush Sodium Chloride () 250 mls @ 15 mls/hr IV .[id number] PRN PRN Reason: Additional IVPB Infusion Levothyroxine Sodium (Synthroid) 75 mcg PO DAILY@0600 [facility] Last Admin: 07/31/19 05:43 Dose: 75 mcg Documented by: Melatonin (Melatonin) 3 mg PO QHS [facility] Last Admin: 07/30/19 23:17 Dose: 3 mg Documented by: Metoprolol Tartrate (Lopressor (Beta Marlene)) 12.5 mg PO BID [facility] Last Admin: 07/31/19 12:46 Dose: 12.5 mg Documented by: Morphine Sulfate () 2 mg IV Q3H PRN PRN PRN Reason: Pain Score 6-10/10 Nitroglycerin (Nitrostat) 0.4 mg SUBLINGUAL Q5M PRN PRN Reason: CARDIAC/CHEST PAIN Last Admin: 07/30/19 20:24 Dose: 0.4 mg Documented by: Ondansetron HCl (Zofran) 4 mg IV Q8H PRN PRN PRN Reason: NAUSEA/VOMITING Oxycodone HCl (Oxyir) 5 mg PO Q4H PRN PRN PRN Reason: Pain Score 6-10/10 Sodium Chloride () 10 - 40 ml IV UD PRN PRN Reason: SALINE FLUSH Last Admin: 07/31/19 05:44 Dose: 10 ml Documented by: Code Visit OBSV E&M: [id number] Observation care discharge
== END 2019-07-31 15:57 | disposition home or self-care (01) ==
LOC: ED 18:43 → PCU 19:26
PROVIDERS: Admitting Provider Student in an Organized Health Care Education/Training Program; Emergency Provider Emergency Medicine; PCP Internal Medicine; Visit Provider Internal Medicine
DX: R07.89 Other chest pain (principal); R11.0 Nausea; R00.2 Palpitations; R42 Dizziness and giddiness; F32.9 Major depressive disorder, single episode, unspecified; E03.9 Hypothyroidism, unspecified; R03.0 Elevated blood-pressure reading, without diagnosis of hypertension; I16.1 Hypertensive emergency; E78.5 Hyperlipidemia, unspecified; Z79.899 Other long term (current) drug therapy
CPT/HCPCS: 36415; 71045; 78452; 80048; 80061; 83735; 84484; 85025; 93005; 93017; 93306; 99218; 99285; A9500; A4216; G0378

== ENCOUNTER → 2019-08-14 11:19 | Outpatient (CLI) | payer OTHER, SELFPAY ==
[2018-10-07 12:30] VITALS: BMI 27.1
[2019-07-30 19:22] VITALS: BMI 22.7
--- NOTE | 2019-08-14 11:22 | BI_ITS ---
MAMMOGRAPHY - BILATERAL SCREENING REASON FOR EXAM: Female, 64 years old. Routine annual screening examination. PERTINENT HISTORY: First cousin had breast cancer TECHNIQUE: Digital bilateral breast robert (3D mammographic acquisition) in the CC and MLO projections. 2-D mediolateral oblique (MLO) and craniocaudad (CC) views of both breasts were obtained. CAD: Full Field Digital Mammography with Computer Added Detection was performed. COMPARISON: Previous mammograms obtained on 07/11/2018 FINDINGS: Breast Composition: Dense interlobar structures identified There are no dominant masses or suspicious calcifications. No other significant abnormalities are identified. BI/SCREEN MAMM (CAD) W/ROBERT BILAT IMPRESSION: Stable bilateral screening mammogram. Yearly follow-up mammogram recommended. (A) ASSESSMENT CATEGORY: BIRADS Category 1: Negative. A letter regarding these results will be sent to the patient by the facility within 30 days. Approximately 10% of breast cancers are not detected by mammography. A normal mammogram should not delay biopsy of a clinically suspicious abnormality. [id number] Electronically Signed: Geronimo Della, at 18:21 EST Tel , Service support ,
== END ==
PROVIDERS: PCP Internal Medicine; Referring Provider Internal Medicine; Visit Provider Internal Medicine
DX: Z12.31 Encounter for screening mammogram for malignant neoplasm of breast (principal)
CPT/HCPCS: 77063; 77067

== ENCOUNTER → 2020-03-30 11:03 | Outpatient (CLI) | payer OTHER, SELFPAY ==
[2019-07-30 19:22] VITALS: BMI 22.7
[2020-03-30 11:17] LABS: Bacteria 0 SEEN /hpf (None Seen); Mucous, Urine 0 SEEN /hpf (<or=2+); Red Blood Cells-Urine 0 SEEN /hpf (0-5); White Blood Cells 0 SEEN /hpf (0-5)
[2020-03-30 12:42] LABS: Color, Urine Yellow (Yellow); Glucose, Dipstick Normal (Normal); Ketone-Dipstick Negative (Negative); Leukocyte Esterase-Dipstick 25 /ul (Negative); Nitrite-Dipstick Negative (Negative); Occult Blood-Urine 10 /ul (Negative); Protein-Dipstick Negative (Negative); Specific Gravity, Urine 1.015 (1.002-1.030); Urine Bilirubin Dipstick Negative (Negative); Urine Clarity Clear (Clear); Urine Urobilinogen Normal (Normal)
[2020-03-30 12:44] LABS: Absolute Lymphocyte Count 2.13 X10^3/uL (0.83-4.51); Absolute Neutrophil Count 4.2 X10^3/uL (2.0-7.7); Basophil# 0.07 X10^3/uL; Eosinophil# 0.18 X10^3/uL; Eosinophils% 2.5 % (0-5); Hematocrit 42.9 % (37-47); Lymphocyte # 2.13 X10^3/ul (4.0); Lymphocyte % 29.6 % (19-41); Mean Corp Hgb Conc 32.6 g/dL (32-36); Mean Corpuscular Hgb 29.4 pg (27.0-32.0); Mean Corpuscular Volume 89.9 fL (81-99); Mean Platelet Vol. 9.9 fl (6.2-12.0); Monocyte# 0.54 X10^3/uL; Monocyte% 7.5 % (0-10); NRBC Flagged by Analyzer 0 % (0-5); Neutrophil # 4.24 X10^3/uL (2.7-7.7); Platelet Count 340 K/mm3 (150-450); RBC Distribution Width CV 13.2 % (11.6-14.6); RBC Distribution Width SD 43.8 fl (35.1-43.9); Red Blood Count 4.77 M/mm3 (4.2-5.4); White Blood Count 7.2 K/mm3 (4.4-11.0)
[2020-03-30 13:01] LABS: Squamous Epithelial Cells - UA 0-5 SEEN /hpf (5-10)
[2020-03-30 13:21] LABS: AST(SGOT) 16 U/L (15-37); Alanine Aminotransfer ALT/SGPT 20 U/L (13-56); Albumin, Serum 3.8 g/dL (3.2-5.0); Alkaline Phosphatase 81 U/L (45-117); Anion Gap 4 (5-15); BUN 15 mg/dL (7-18); BUN/Creat Ratio 17.2 RATIO (10-20); Chloride 104 mmol/L (98-107); Cholesterol 225 mg/dL (200); Creatinine, Serum 0.87 mg/dL (0.55-1.02); EST Glomerular Filtration Rate 70 mL/min (>60); Est Glom Filt Rate - Afr Amer 84 mL/min (>60); Free T3 2.6 pg/mL (2.18-3.98); Globulin 3.7 g/dL (2.2-4.2); Glucose 82 mg/dL (74-106); High Density Lipoprotein 58 mg/dL; Potassium 3.9 mmol/L (3.5-5.1); Protein, Total 7.5 g/dL (6.4-8.2); Sodium Level 139 mmol/L (136-145); T4 Free Direct 1.31 ng/dL (0.76-1.46); Thyroid Stim Hormone (TSH) 1.41 uIU/mL (0.358-3.74); Triglycerides 88 mg/dL; Very Low Density Lipoprotein 18 mg/dL (5-40)
[2020-03-30 13:40] LABS: Microalbumin,Random Urine 15.9 mg/L (NO RANGE EST.); Microalbumin:Creatinine Ratio 20.4 mg/g CRE (<30 mg/g CRE)
== END ==
PROVIDERS: PCP Internal Medicine; Referring Provider Internal Medicine; Visit Provider Internal Medicine
DX: I10 Essential (primary) hypertension (principal); E03.9 Hypothyroidism, unspecified; E78.49 Other hyperlipidemia
CPT/HCPCS: 36415; 80053; 80061; 81001; 82043; 82570; 84439; 84443; 84481; 85025

== ENCOUNTER → 2020-04-05 11:14 | Outpatient (CLI) | payer OTHER, SELFPAY ==
[2019-07-30 19:22] VITALS: BMI 22.7
--- NOTE | 2020-04-05 11:16 | US_ITS ---
HISTORY: Nodules. Technique: 62 images through the thyroid gland. Grayscale and color Doppler images. A previous, limited, CT scan of the chest that begins at the aortic arch, and not as high as the thyroid gland. In the June 09 2016 a thyroid ultrasound is present. Findings: The right lobe of the thyroid gland measures 1.3 x 3.9 x 1.5 cm. This is smaller than on the previous study. Within the posterior aspect in the midportion of the right lobe of the thyroid gland there is a nodule. This nodule is mixed cystic and solid. It is hypoechoic relative to adjacent thyroid parenchyma. It is taller than wide. Its margins are smooth. It has no associated calcifications. It has a TI RADS score of 6 points, a T I RADS level of 4, moderately suspicious. It measures 3.5 x 3.5 x 3 mm. It does not demonstrate flow on color Doppler imaging. The thyroid isthmus is homogeneous at 4 mm. The left lobe of the thyroid gland measures 1.3 x 4.2 x 1.5 cm. This is smaller than the previous study. The left lobe of thyroid gland is heterogeneous. Within the lateral aspect of the left lobe of the thyroid gland there is a nodule. This nodule measures 4 x 3 x 3 mm. It is cystic grommets completely cystic. It is hypoechoic relative to the adjacent thyroid parenchyma. It is taller than wide. Its margins are smooth. It has no associated calcifications. On color Doppler imaging there is no flow centrally within its lumen. This is a total of 5 points for a TI RADS level of 4. This is moderately suspicious. More anteriorly within left lobe of the thyroid gland there is another nodule. This nodule measures 5 x 3 x 5 mm. It is cystic. It is hypoechoic. It is wider than tall. It has smooth margins. Does not have any associated calcifications. This has to total points for a TI RADS score of 2. This is not suspicious. The lesion anteriorly within the left lobe of the thyroid gland, the last nodule, was present on the previous study. It has not significantly changed, and therefore, is likely a benign. Another lesion measured anteriorly within the left lobe of the thyroid gland does not appear to be like a lesion by imaging parameters on the current study, consistent with benignity. The lesion within the right lobe of the thyroid gland on the previous study was much more spongiform and benign. Another lesion, within the right lobe of the thyroid gland on the previous study is not identified on the current study. On today's study this area does appear to be slightly heterogeneous, but without a defined nodule US/Thyroid IMPRESSION: All 3 lesions identified within the thyroid gland on today's study, one on the right, and 2 on the left were present on the previous study of June 09, 2016. These lesions are either smaller or unchanged since that study. Absence of change in almost 4 years is Hailes consistent with benignity regardless of imaging characteristics. at 0510 Reported and signed by: Rc Barnhart MD Electronically Signed: Rc Barnhart MD at 5:46 EDT Tel , Service support ,
== END ==
PROVIDERS: PCP Internal Medicine; Referring Provider Internal Medicine; Visit Provider Internal Medicine
DX: E04.1 Nontoxic single thyroid nodule (principal)
CPT/HCPCS: 76536

== ENCOUNTER → 2020-07-13 09:58 | Outpatient (CLI) | payer OTHER, SELFPAY ==
[2019-07-30 19:22] VITALS: BMI 22.7
--- NOTE | 2020-07-13 09:59 | BD_ITS ---
STUDY: DUAL ENERGY X-RAY ABSORPTIOMETRY / DXA REASON FOR EXAM: Female, 65 years old. 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 COMPARISON: Comparison is made with prior examination dated 07/11/2018. FINDINGS: Lumbar Spine (L1-L4): g/cm2 (1.016) / T-score (-1.4) / Z-score (0.1) Findings are suggestive of osteopenia with a low fracture risk. Left Femur Total: g/cm2 (0.778) / T-score (-1.8) / Z-score (-0.7) Left Femoral Neck: g/cm2 (0.677) / T-score (-2.6) / Z-score (-1.2) Right Femur Total: g/cm2 (0.717) / T-score (-2.3) / Z-score (-1.2) Right Femoral Neck: g/cm2 (0.619) / T-score (-3.0) / Z-score (-1.6) The T-Scores on the most recent prior examination were: Lumbar Spine (L1-L4): There has been improvement of bone density since the previous examination. Left Femur Total: which represents a worsening of 0.4%. Right Femur Total: which represents an improvement of 2.4%. BD/Dexa Bone Density Study IMPRESSION: The patient is considered osteoporotic as outlined below according to World Charly Organization (WHO) criteria with a high fracture risk. There has been improvement of bone density since the previous examination. Reference Information: The T-score is the number of standard deviations above or below the standard which is normal for young adults at their peak bone mineral density. The World Health Organization (WHO) interprets the T-scores as follows: Above -1 Normal bone density Between -1 and -2.5 Osteopenia Equal to / or below -2.5 Osteoporosis As a practical clinical guideline, osteopenia may be graded as follows: Mild -1 through -1.5 Moderate -1.6 through -2.0 Severe -2.1 through -2.4 The Z-score is the number of standard deviations above or below age-matched controls. A Z-score of less than -1.5 would be considered abnormal. References: 1. NIH Osteoporosis and Related Bone Diseases www osteo.org 2. International Society for Clinical Densitometry www iscd.org 3. National Osteoporosis Foundation www nof.org Electronically Signed: Jonathan Law MD at 13:38 EST , Service support ,
== END ==
PROVIDERS: PCP Internal Medicine; Referring Provider Internal Medicine; Visit Provider Internal Medicine
DX: Z78.0 Asymptomatic menopausal state (principal)
CPT/HCPCS: 77080

== ENCOUNTER → 2020-08-16 10:01 | Outpatient (CLI) | payer OTHER, SELFPAY ==
[2019-07-30 19:22] VITALS: BMI 22.7
--- NOTE | 2020-08-16 10:02 | BI_ITS ---
MAMMOGRAPHY - BILATERAL SCREENING REASON FOR EXAM: Female, 65 years old. Routine annual screening examination. PERTINENT HISTORY: Non-contributory. TECHNIQUE: Digital bilateral breast robert (3D mammographic acquisition) in the CC and MLO projections. 2-D mediolateral oblique (MLO) and craniocaudad (CC) views of both breasts were obtained. CAD: Full Field Digital Mammography with Computer Added Detection was performed. COMPARISON: Comparison is made with prior study dated 08/14/2019 and 07/11/2018. FINDINGS: Breast Composition: The breasts are heterogeneously dense, which may obscure small masses. There are no dominant masses or suspicious calcifications. Stable benign-appearing bilateral axillary lymph nodes. No other significant abnormalities are identified. There has been no significant change since the prior study. BI/SCRN MAMM (CAD)W/ROBERT BILAT IMPRESSION: Stable bilateral screening mammogram. Yearly follow-up mammogram recommended. (A) ASSESSMENT CATEGORY: BIRADS Category 2: Benign. A letter regarding these results will be sent to the patient by the facility within 30 days. Approximately 10% of breast cancers are not detected by mammography. A normal mammogram should not delay biopsy of a clinically suspicious abnormality. [id number] Electronically Signed: Jonathan Law MD at 11:36 EST , Service support ,
== END ==
PROVIDERS: PCP Internal Medicine; Referring Provider Internal Medicine; Visit Provider Internal Medicine
DX: Z12.31 Encounter for screening mammogram for malignant neoplasm of breast (principal)
CPT/HCPCS: 77063; 77067

== ENCOUNTER → 2021-03-17 10:11 | Outpatient (CLI) | payer OTHER, SELFPAY | PROVIDERS: PCP Internal Medicine; Referring Provider Physician Assistant; Visit Provider Physician Assistant | DX: L03.115 Cellulitis of right lower limb (principal) | CPT/HCPCS: 87070; 87205 ==

== ENCOUNTER 2021-08-17 15:15 | Outpatient (CLI) | payer OTHER, SELFPAY ==
--- NOTE | 2021-08-17 15:19 | BI_ITS ---
MAMMOGRAPHY - BILATERAL SCREENING REASON FOR EXAM: Female, 66 years old. Routine annual screening examination. PERTINENT HISTORY: Non-contributory. TECHNIQUE: Digital bilateral breast robert (3D mammographic acquisition) in the CC and MLO projections. 2-D mediolateral oblique (MLO) and craniocaudad (CC) views of both breasts were obtained. CAD: Full Field Digital Mammography with Computer Added Detection was performed. COMPARISON: Comparison is made with prior study dated 08/16/2020 and 06/13/2020. FINDINGS: Breast Composition: The breasts are heterogeneously dense, which may obscure small masses. There are no dominant masses or suspicious calcifications. Stable benign-appearing bilateral axillary lymph nodes. No other significant abnormalities are identified. There has been no significant change since the prior study. BI/SCRN MAMM (CAD)W/ROBERT BILAT IMPRESSION: Stable bilateral screening mammogram. Yearly follow-up mammogram recommended. (A) ASSESSMENT CATEGORY: BIRADS Category 2: Benign. A letter regarding these results will be sent to the patient by the facility within 30 days. Approximately 10% of breast cancers are not detected by mammography. A normal mammogram should not delay biopsy of a clinically suspicious abnormality. [id number] Electronically Signed: Jonathan Law MD at 7:52 EST ,
== END 2021-08-17 23:59 | disposition home or self-care (01) ==
LOC: OPBI 15:16
PROVIDERS: PCP Internal Medicine; Visit Provider Internal Medicine
DX: Z12.31 Encounter for screening mammogram for malignant neoplasm of breast (principal)
CPT/HCPCS: 77063; 77067

== ENCOUNTER → 2022-07-03 | Outpatient (CLI) | payer MEDICARE, SELFPAY ==
--- NOTE | 2022-07-03 08:17 | RDU_ITS ---
Reason For Study: HTN Right Renal Artery Left Renal Artery Right renal artery ostium Left renal artery ostium 110.4/30.1 138.9/40.4 RSV/EDV. PSV/EDV. Right renal artery proximal Left renal artery proximal PSV/EDV 131.2/40.4 PSV/EDV. 123.3/35.2 . Right renal artery mid 157/50.8 Left renal artery mid 154.9/57.9 PSV/EDV. PSV/EDV . Right renal artery distal Left renal artery distal 151.7/41.7 157.2/49.6 PSV/EDV. PSV/EDV. Right Renal Parenchyma Left Renal Parenchyma Upper Pole Medula 26.2/9.1 PSV/EDV. Left upper pole medulla 34.9/12.8 Right upper pole medulla EDR 0.3 . PSV/EDV . Right upper pole medulla R.I. Left upper pole medulla EDR 0.4 . 0.65 . Left upper pole medulla R.I. 0.63 . Upper Brian Cortx 16.8/6.4 PSV/EDV. UP Cortex 21.4/7.9 PSV/EDV. Right upper pole cortex EDR 0.4 . Left upper pole cortex EDR 0.4 . Right upper pole cortex R.I. 0.62 . Left upper pole cortex R.I. 0.63 . Right lower Pole medulla 29.5/9.7 Left lower Pole medulla 29.4/9.8 PSV/EDV . PSV/EDV . Right lower pole medulla EDR 0.3 . Left lower pole medulla EDR 0.3 . Right lower pole medulla R.I. Left lower pole medulla R.I. 0.67 . 0.67 . Lower Pole Cortx 22/7.9 PSV/EDV. Lower Pole Cortex 16.8/6.4 PSV/EDV. Left lower pole cortex EDR 0.4 . Right lower pole cortex EDR 0.62 . Left lower pole cortex R.I. 0.64 . Right lower pole cortex R.I. 0.4 . Left Renal Hilar Right Renal Hilar LT Hilar avg 79.3/25.8 PSV/EDV . Right Hilar avg 63.6/21.6 PSV/EDV. Left hilar acceleration time 40 Right hilar acceleration time 40 m/sec. m/sec. Left Renal Dimensions Right Renal Dimensions Left kidney size 9.94 cm . Right kidney size 10.10 cm . Left cortical dimension 1.66 cm . Right cortical dimension 1.45 cm . Aorta Proximal abdominal aorta 1.45 x 1.42 cm . Proximal abdominal aorta peak systolic velocity is 125.3 cm/sec . Distal abdominal aorta 1.06 x 1.03 cm . Distal abdominal aorta peak systolic velocity is 127.1 cm/sec . VL/Renal Artery Duplex Ultrasound Interpretation Summary Right renal artery patent with normal velocities, no evidence of stenosis. Left renal artery patent with normal velocities, no evidence of stenosis. Right renal vein patent Left renal vein patent The right kidney is normal in size. The left kidney is normal in size. Ordering Physician: Amparo Tse Referring Physician: Amparo Tse Performed By: Gilma Alvarado RVT
--- NOTE | 2022-07-03 08:42 | US_ITS ---
STUDY: THYROID ULTRASOUND REASON FOR EXAM: Female, 67 years old. Thyroid nodule. TECHNIQUE: Ultrasound evaluation of the thyroid was performed with real-time and static khan-scale imaging. COMPARISON: Comparison is made with prior examination 04/05/2020. FINDINGS: RIGHT LOBE: The right lobe of the thyroid gland measures 4 cm x 1.3 cm x 1.5 cm. There is a heterogeneous echotexture. Stable 4 mm x 4 mm x 2 mm hypoechoic solid nodule in the posterior aspect of the midportion of the right lobe of the thyroid. LEFT LOBE: The left lobe of the thyroid gland measures 3.9 cm x 1.4 cm x 1.3 cm. There is a heterogeneous echotexture. Stable 5 mm x 5 mm x 3 mm well-defined hypoechoic solid nodule in the lateral aspect of the left lobe of the thyroid. A similar-appearing nodular density measuring 5 mm x 3 mm x 3 mm also seen in the anterior aspect of the lobe. ISTHMUS: The isthmus measures 2 mm. The regional lymph nodes are normal. US/Thyroid IMPRESSION: Stable examination. Electronically Signed: Jonathan Law MD at 14:35 EST ,
--- NOTE | 2022-07-03 09:15 | ECHOD_ITS ---
Reason For Study: HTN Procedure This was a 2D Doppler, Color Flow transthoracic echocardiogram. Exam performed in department. Left Ventricle Normal LV size. Left ventricular systolic function is normal. The estimated ejection fraction is 60 %. No regional wall motion abnormalities noted. Right Ventricle Normal RV size. Normal systolic function. Atria Normal left atrium. Normal right atrium. Mitral Valve Normal mitral valve. Tricuspid Valve Normal tricuspid valve. Mild tricuspid valve insufficiency. Pulmonary artery systolic pressure is 24 mmHg. Aortic Valve Normal aortic valve. Trisinus/trileaflet aortic valve. Pulmonic Valve Normal pulmonic valve. Great Vessels Normal aortic root. The pulmonary artery is normal size. Normal inferior vena cava. Pericardium/Pleural No pericardial effusion. MMode/2D Measurements & Calculations LVIDd: 3.9 cm IVSd: 0.95 cm Ao root diam: 2.8 cm LVIDs: 1.7 cm LVPWd: 1.3 cm FS: 57.6 % LAV(MOD-sp4): 24.6 ml LVAd ap4: 15.9 cm2 SV(MOD-sp4): 22.4 ml LVLd ap4: 5.8 cm EDV(MOD-sp4): 35.6 ml EDV(sp4-el): 36.8 ml LVAs ap4: 8.2 cm2 LVLs ap4: 5.0 cm ESV(MOD-sp4): 13.2 ml ESV(sp4-el): 11.2 ml EF(MOD-sp4): 62.9 % EF(sp4-el): 69.5 % SV(sp4-el): 25.5 ml LA A4 area: 11.3 cm2 LA dimension(2D): 3.3 cm RA A4 area: 9.2 cm2 Time Measurements MV dec time: 0.18 sec Doppler Measurements & Calculations MV E max emerson: 75.3 cm/sec Lat Peak E' Emerson: 6.3 cm/sec Med Peak E' Emerson: 6.5 cm/sec MV A max emerson: 86.1 cm/sec E/E' lat: 12.0 E/E' med: 11.6 MV E/A: 0.88 MV V2 max: 92.8 cm/sec Ao V2 max: 153.2 cm/sec MV max P.4 mmHg MV dec slope: 414.2 cm/sec2 Ao max P.4 mmHg MV V2 mean: 58.3 cm/sec Ao V2 mean: 101.1 cm/sec MV mean P.5 mmHg Ao mean P.7 mmHg MV V2 VTI: 26.8 cm Ao V2 VTI: 32.8 cm AV (velocity ratio): 0.76 LV V1 max: 116.5 cm/sec PA V2 max: 145.7 cm/sec TR max emerson: 225.4 cm/sec LV V1 max P.4 mmHg PA V2 mean: 91.3 cm/sec TR max P.3 mmHg LV V1 mean P.3 mmHg LV V1 mean: 86.9 cm/sec LV V1 VTI: 24.8 cm ECHO/Echo Complete Interpretation Summary Normal LV size. Left ventricular systolic function is normal. The estimated ejection fraction is 60 %. Pulmonary artery systolic pressure is 24 mmHg. Structurally normal valves. Ordering Physician: Amparo Tse Referring Physician: Amparo Tse Performed By: Anastacia Milligan RCS
== END | disposition home or self-care (01) ==
LOC: CVS 07:56
PROVIDERS: PCP Internal Medicine; Referring Provider Internal Medicine; Visit Provider Internal Medicine
DX: E04.1 Nontoxic single thyroid nodule (principal); I10 Essential (primary) hypertension; R00.2 Palpitations
CPT/HCPCS: 76536; 93306; 93975

== ENCOUNTER → 2022-09-25 | Outpatient (CLI) | payer MEDICARE, SELFPAY ==
--- NOTE | 2022-09-25 08:31 | BI_ITS ---
MAMMOGRAPHY - BILATERAL SCREENING 3-D TOMOSYNTHESIS REASON FOR EXAM: Female, 67 years old. SCREENING PERTINENT HISTORY: No significant family history. TECHNIQUE: 2-D mammograms and 3-D Tomosynthesis of the breast (s) were performed. CAD was performed. COMPARISON: 08/17/2021 FINDINGS: The breast composition is composed of scattered fibroglandular density. Scattered benign calcifications are seen. No dense spiculated masses or suspicious microcalcifications are identified. No architectural distortion is identified. There is no skin thickening or retraction. There has been no significant change since the prior study. BI/SCRN MAMM (CAD)W/ROBERT BILAT IMPRESSION: No mammographic signs of malignancy. Routine yearly mammograms recommended. ASSESSMENT CATEGORY: BIRADS Category 2: Benign. A letter regarding these results will be sent to the patient by the facility within 30 days. FOLLOW UP RECOMMENDATION: Yearly follow up mammogram recommended. (A) Approximately 10% of breast cancers are not detected by mammography. A normal mammogram should not delay biopsy of a clinically suspicious abnormality. Electronically Signed: Salvador Disla MD at 9:55 EDT ,
== END | disposition home or self-care (01) ==
LOC: OPBI 08:30
PROVIDERS: PCP Internal Medicine; Referring Provider Internal Medicine; Visit Provider Internal Medicine
DX: Z12.31 Encounter for screening mammogram for malignant neoplasm of breast (principal)
CPT/HCPCS: 77063; 77067

== ENCOUNTER 2022-11-13 12:56 | Emergency (ER) | payer MEDICARE, SELFPAY ==
[2022-11-13 12:57] VITALS: BP 163/71; PULSE 84; RESP 18; TEMP 36.4; O2SAT 99; BMI 27.1
--- NOTE | 2022-11-13 13:00 | EDS_ITS ---
HPI History of Present Illness Chief Complaint: Upper Extremity Injury [facility] Medical History (Updated 11/13/22 @ 15:[address] Carlyle Presley, DO) Cellulitis of right thigh Home Medications celecoxib 200 mg capsule 200 mg PO DAILY 07/30/19 [History Last Taken 07/29/19] duloxetine 20 mg capsule,delayed release 40 mg PO DAILY 07/30/19 [History Last Taken 07/29/19] levothyroxine 75 mcg tablet 75 mcg PO DAILY 07/30/19 [History Last Taken 07/30/19] atorvastatin 40 mg tablet 40 mg PO QHS #30 tabs 07/31/19 [Rx Last Taken Unknown] lisinopril 5 mg tablet 5 mg PO DAILY #30 tabs 07/31/19 [Rx Last Taken Unknown] doxycycline monohydrate 100 mg capsule 100 mg PO BID #20 caps 03/17/21 [Rx Last Taken Unknown] hydrochlorothiazide 25 mg tablet tablet PO 09/30/22 [History Last Taken Unknown] prednisone 10 mg tablet 10 mg PO .COMPLEX #40 tabs 09/30/22 [Rx Last Taken Unknown] Allergy/AdvReac Type Severity Reaction Status Date / Time No Known Allergies Allergy Verified 11/13/22 13:05 Social History Smoking Status: Never smoker EXAM Physical Exam Const Vital Signs: 11/13/22 12:57 Temperature 97.5 F L Temperature Source Temporal Pulse Rate 84 Respiratory Rate 18 Blood Pressure 163/71 H Blood Pressure Mean 101 Pulse Ox 99 Oxygen Delivery Method Room Air [facility] MDM Narrative Medical decision making narrative: HISTORY OF PRESENT ILLNESS: 67-year-old female here for left arm wrist and hand injury. 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 She further states she did not hit her head. She notes constant severe pain in the left wrist and left forearm area that is constant, severe and worse with movement and palpation. REVIEW OF SYSTEMS: Pertinent positives: Left hand, wrist, arm pain Pertinent negatives: PHYSICAL EXAM: Nursing triage notes reviewed, Vital signs reviewed Constitutional: please see mdm HENT: MMM, atraumatic, normocephalic, no cephalhematoma Eyes: Pupils equal round and reactive to light, Extraocular muscles intact Neck: No stridor, no JVD, full neck ROM, no midline cervical spine tenderness step-offs or deformities Lungs: Clear to auscultation, No wheezing or rales. No increased work of breathing, no conversational dyspnea, no accessory muscle use, no nasal flaring. No respiratory distress noted, no flail chest Heart: Regular rate and rhythm, No murmurs, No rubs and No gallops, 2+ distal pulses (radial, femoral, posterior tibial) in all extremities Abdomen: Soft, there is no tenderness, rigidity, rebound or guarding, no obvious peritoneal signs, no palpable pulsatile abdominal masses, no auscultated abd ominal bruit : No CVAT Extremities: No edema, TTP over left wrist, left forearm and left elbow. Full range of motion of left shoulder. No step-offs deformities or TTP over left clavicle. Neuro: Intact 5/5 strength with ok sign (median), intact finger abduction (ulnar) intact wrist extension (radial n). Intact sensation in the radial, ulnar, and median nerve distributions. Skin: No rash or lesions noted, no signs of open fracture MEDICAL DECISION MAKING: Chief Complaint: Left upper extremity injury External records reviewed: No recent advanced imaging of the involved extremity Factors affecting care: History of hypertension, hyperlipidemia Social determinants of health: Elderly History obtained from others: None Consults: None ALL IMAGES HAVE BEEN PERSONALLY REVIEWED AND INTERPRETED BY MYSELF. MDM Narrative: The patient was hemodynamically stable, afebrile, nontoxic-appearing. Trauma survey concerning for left upper extremity injury. I considered the following differential diagnosis: Left wrist, forearm elbow fracture dislocation, left wrist forearm or elbow contusion I obtained x-rays of the left upper extremity which showed no evidence of acute fracture dislocation. Gave wrist splint and follow-up for repeat imaging to definitively rule out occult scaphoid fracture. Total critical care time today provided was at least 0 minutes. This excludes separately billable procedures. There was a high probability of clinically significant/life threatening deterioration in the patient's condition which required my urgent intervention. Shared decision making: I will have a discussion with the patient and or visitors regarding risk/benefits of further testing or admission. They will be made aware of of the risk/benefits inherent in this decision they will be given the opportunity to voice understanding. Radiography Diagnostic Testing: I personally reviewed the patient's imaging. No obvious fracture dislocation of the wrist, forearm or elbow. Discharge Plan Triage Chief Complaint: Upper Extremity Injury ED Provider: Carlyle Presley Dx/Rx/DC Orders Clinical Impression: Arm contusion Instructions: Bone Contusion, ED Possible Wrist Fracture Prescriptions: No Action doxycycline monohydrate 100 mg capsule 100 mg PO BID Qty: 20 0RF hydrochlorothiazide 25 mg tablet PO prednisone 10 mg tablet 10 mg PO .COMPLEX Qty: 40 0RF Rx Instructions: Take 4 pills for 4 days, 3 pills for 4 days, 2 pills for 4 days, take 1 pill for 4 days celecoxib 200 MG capsule 200 mg PO DAILY levothyroxine 75 MCG tablet 75 mcg PO DAILY duloxetine 20 mg capsule,delayed release(DR/EC) 40 mg PO DAILY atorvastatin 40 MG tablet 40 mg PO QHS Qty: 30 0RF lisinopril 5 MG tablet 5 mg PO DAILY Qty: 30 0RF Rx Instructions: Hold if SBP <120. Primary Care Provider: Amparo Tse Referrals: Amparo Tse DO [Primary Care Provider] - Activity Restrictions/Additional Instructions: Thank you for trusting us with your care today! Please take Tylenol (2 pills, 650 mg), ibuprofen (2 pills, 400 mg) every 6 hours as needed for pain and fever control. Please wear your wrist splint is much as possible. In some cases wrist injuries can present with delayed fracture. Please follow with your primary care physician for repeat imaging to determine if you have an occult scaphoid fracture. Please return to the emergency department if your symptoms change or worsen. Please follow with your primary care physician for further outpatient evaluation and management. Disposition Disposition: Home, Self Care Discharge Date/Time: 11/13/22 15:19
--- NOTE | 2022-11-13 13:11 | RAD_ITS ---
INDICATION: forearm pain EXAMINATION/TECHNIQUE: X-RAY - LEFT XR Forearm 2 Views 2 VIEWS COMPARISON: FINDINGS: SOFT TISSUES: No soft tissue swelling or gas. No radiopaque foreign body. BONES/JOINTS: No acute fracture or subluxation.. Normal alignment. Preservation of the joint space.. No sclerotic or destructive changes observed. RAD/Forearm 2 Views IMPRESSION: Negative. Electronically Signed: Yola Jeffers MD at 14:45 EDT ,
--- NOTE | 2022-11-13 13:11 | RAD_ITS ---
INDICATION: elbow pain after fall EXAMINATION/TECHNIQUE: X-RAY - LEFT XR Elbow Min 3 Views COMPARISON: None. FINDINGS: SOFT TISSUES: No soft tissue swelling or gas. No radiopaque foreign body. BONES/JOINTS: There is no displacement of the anterior or posterior fat pads. No acute fracture or subluxation. Normal alignment. Preservation of the joint space. No sclerotic or destructive changes observed. RAD/Elbow min 3 Views IMPRESSION: Negative. Electronically Signed: Yola Jeffers MD at 14:45 EDT ,
--- NOTE | 2022-11-13 13:11 | RAD_ITS ---
INDICATION: fall, foosh, left wrist pain EXAMINATION/TECHNIQUE: X-RAY - LEFT XR Wrist Min 3 Views 3 VIEWS COMPARISON: FINDINGS: SOFT TISSUES: No soft tissue swelling or gas. No radiopaque foreign body. BONES/JOINTS: The bones are diffusely demineralized. No acute fracture or subluxation.. Normal alignment. There are degenerative changes of the radiocarpal joint. No sclerotic or destructive changes observed. RAD/Wrist min 3 Views IMPRESSION: Degenerative changes. Electronically Signed: Yola Jeffers MD at 14:28 EDT ,
[2022-11-13] MEDS: Acetaminophen 325 MG Tablet 650 MG PO (13:17)
[2022-11-13 15:19] VITALS: RESP 18
== END 2022-11-13 15:19 | disposition home or self-care (01) ==
PROVIDERS: Emergency Provider Emergency Medicine; PCP Internal Medicine; Visit Provider Emergency Medicine
DX: S40.022A Contusion of left upper arm, initial encounter (principal); W19.XXXA Unspecified fall, initial encounter
CPT/HCPCS: 73080; 73090; 73110; 99283

== ENCOUNTER → 2022-12-21 | Outpatient (CLI) | payer MEDICARE, SELFPAY ==
--- NOTE | 2022-12-21 17:00 | CT_ITS ---
HISTORY: FX ULNA STYLOID PRO. TECHNIQUE: Helically acquired images were obtained of the left wrist without intravenous contrast. 2-D reformats were performed by the technologist. A radiation dose optimization technique was used for this scan. 224 images. COMPARISON: XR 11/13/2022. FINDINGS: BONES: Advanced healing of nondisplaced ulnar styloid fracture with adjacent enthesopathy. Mild generalized osteopenia. JOINT SPACES: No dislocation. Mild degenerative change. SOFT TISSUES: Mild subcutaneous edema. No subcutaneous emphysema or air in the deep fascial soft tissues. Overlying cast noted. CT/Extremity Upper without Contra IMPRESSION: Healing nondisplaced ulnar styloid fracture with adjacent enthesopathy. Mild soft tissue swelling of the left wrist. Electronically Signed: Debbie Robert MD at 8:56 EDT ,
== END | disposition home or self-care (01) ==
LOC: CT 16:57
PROVIDERS: PCP Internal Medicine; Referring Provider Physician Assistant; Visit Provider Physician Assistant
DX: S52.615D Nondisplaced fracture of left ulna styloid process, subsequent encounter for closed fracture with routine healing (principal); S62.025D Nondisplaced fracture of middle third of navicular [scaphoid] bone of left wrist, subsequent encounter for fracture with routine healing
CPT/HCPCS: 73200

== ENCOUNTER → 2022-12-26 | Outpatient (CLI) | payer MEDICARE, SELFPAY ==
--- NOTE | 2022-12-26 09:45 | BD_ITS ---
STUDY: DUAL ENERGY X-RAY ABSORPTIOMETRY / DXA REASON FOR EXAM: Female, 67 years old. [id number] -- postmenopausal TECHNIQUE: Bone Mineral Density (BMD) measurements of lumbar spine and bilateral hips were obtained. COMPARISON: Comparison is made with prior study dated July 13, 2020. FINDINGS: Lumbar Spine (L1-L4): g/cm2 (0.747) / T-score (-2.8) / Z-score (-0.9) Findings are suggestive of osteoporosis with a high fracture risk. Left Femur Total: g/cm2 (0.757) / T-score (-1.5) / Z-score (-0.2) Left Femoral Neck: g/cm2 (0.545) / T-score (-2.7) / Z-score (-1.2) Right Femur Total: g/cm2 (0.677) / T-score (-2.2) / Z-score (-0.9) Right Femoral Neck: g/cm2 (0.520) / T-score (-3.0) / Z-score (-1.4) The T-Scores on the most recent prior examination were: Lumbar Spine (L1-L4): There has been worsening of bone density since the previous examination. Left Femur Total: which represents an improvement of 5.4%. Right Femur Total: which represents an improvement of 2.7%. BD/Dexa Bone Density Study IMPRESSION: The patient is considered osteoporotic as outlined below according to World Charly Organization (WHO) criteria with a high fracture risk. There has been improvement of bone density since the previous examination. Reference Information: The T-score is the number of standard deviations above or below the standard which is normal for young adults at their peak bone mineral density. The World Health Organization (WHO) interprets the T-scores as follows: Above -1 Normal bone density Between -1 and -2.5 Osteopenia Equal to / or below -2.5 Osteoporosis As a practical clinical guideline, osteopenia may be graded as follows: Mild -1 through -1.5 Moderate -1.6 through -2.0 Severe -2.1 through -2.4 The Z-score is the number of standard deviations above or below age-matched controls. A Z-score of less than -1.5 would be considered abnormal. References: 1. NIH Osteoporosis and Related Bone Diseases www osteo.org 2. International Society for Clinical Densitometry www iscd.org 3. National Osteoporosis Foundation www nof.org Electronically Signed: Jonathan Law MD at 14:39 EDT ,
== END | disposition home or self-care (01) ==
LOC: OPBD 09:35
PROVIDERS: PCP Internal Medicine; Referring Provider Internal Medicine; Visit Provider Internal Medicine
DX: Z78.0 Asymptomatic menopausal state (principal)
CPT/HCPCS: 77080

== ENCOUNTER → 2023-01-29 | Outpatient (CLI) | payer MEDICARE, SELFPAY ==
[2023-01-29 10:13] LABS: Absolute Lymphocyte Count 1.84 X10^3/uL (0.83-4.51); Absolute Neutrophil Count 4.3 X10^3/uL (2.0-7.7); Basophil# 0.07 X10^3/uL; Eosinophil# 0.33 X10^3/uL; Eosinophils% 4.7 % (0-5); Hematocrit 42.5 % (37-47); Hemoglobin 14.2 g/dL (12.0-15.0); Lymphocyte # 1.84 X10^3/ul (0.83-4.51); Mean Corp Hgb Conc 33.4 g/dL (32-36); Mean Corpuscular Hgb 30.3 pg (27.0-32.0); Mean Corpuscular Volume 90.6 fL (81-99); Mean Platelet Vol. 9.9 fl (6.2-12.0); Monocyte# 0.55 X10^3/uL; Monocyte% 7.8 % (0-10); NRBC Flagged by Analyzer 0 % (0-5); Neutrophil # 4.28 X10^3/uL (2.7-7.7); Neutrophil % 60.2 % (47-70); Platelet Count 334 K/mm3 (150-450); RBC Distribution Width CV 13.3 % (11.6-14.6); RBC Distribution Width SD 44.8 fl (35.1-43.9); Red Blood Count 4.69 M/mm3 (4.2-5.4); White Blood Count 7.1 K/mm3 (4.4-11.0)
[2023-01-29 10:42] LABS: Vitamin B12 1175 pg/mL (211-911); Vitamin D,25 Hydroxy 66.4 ng/mL
[2023-01-29 10:56] LABS: Progesterone Level < 0.21 ng/mL (See Comment)
[2023-01-29 13:44] LABS: ALB/GLOB Ratio 0.9 RATIO (0.9-2.4); AST(SGOT) 16 U/L (15-37); Alanine Aminotransfer ALT/SGPT 22 U/L (13-56); Albumin, Serum 3.3 g/dL (3.2-5.0); Alkaline Phosphatase 62 U/L (45-117); Anion Gap 7 (5-15); BUN 12 mg/dL (7-18); BUN/Creat Ratio 15.5 RATIO (10-20); Calcium,Total 8.7 mg/dL (8.5-10.1); Chloride 107 mmol/L (98-107); Creatinine, Serum 0.77 mg/dL (0.55-1.02); EST Glomerular Filtration Rate 80 mL/min (>60); Est Glom Filt Rate - Afr Amer 96 mL/min (>60); Estradiol < 11.0 pg/mL; Free T3 2.5 pg/mL (2.18-3.98); Globulin 3.6 g/dL (2.2-4.2); Glucose 90 mg/dL (74-106); Potassium 3.9 mmol/L (3.5-5.1); Protein, Total 6.9 g/dL (6.4-8.2); Sodium Level 141 mmol/L (136-145); T4 Free Direct 1.08 ng/dL (0.76-1.46); Thyroid Stim Hormone (TSH) 2.39 uIU/mL (0.358-3.74)
[2023-01-30 04:07] LABS: DHEA Sulfate 25.1 ug/dL (20.4-186.6); Thyroid Peroxidase AB 58 IU/mL (0-34)
== END | disposition home or self-care (01) ==
PROVIDERS: PCP Internal Medicine; Referring Provider Preventive Medicine Public Health & General Preventive Medicine; Visit Provider Preventive Medicine Public Health & General Preventive Medicine
DX: E03.9 Hypothyroidism, unspecified (principal); N95.1 Menopausal and female climacteric states; E55.9 Vitamin D deficiency, unspecified
CPT/HCPCS: 36415; 80053; 82306; 82533; 82607; 82627; 82670; 82746; 84144; 84403; 84439; 84443; 84481; 85025; 86376; 82626

== ENCOUNTER 2023-04-09 11:00 | Outpatient (RCR) | payer MEDICARE, SELFPAY ==
--- NOTE | 2023-03-26 13:18 | HP.PTEVAL ---
Patient's Visit Information Visit Information Visit Information: JOAO SIMENTAL is a 68 year old F referred to Physical Therapy by Dr. Amparo Tse DO with a diagnosis of L KNEE PAIN. Date of Evaluation: 03/26/23 Physical Therapist: Lu Gallagher PT, Cert MDT Visit Plan Frequency: 2x /Week Duration: 4-6 Weeks Plan: L LATERAL/POSTERIOR KNEE US AT 1.3 W/CM2 50% X 8 MIN X 6-8. L DISTAL LATERAL/POSTERIOR THIGH STM. L LE ROM, STRETCHING AND STRENGTHENING WITH FOCUS ON PROPER MECHANICS AND HEP INSTRUCTION TO HELP MEET SET GOALS. Subjective Subjective: Work/Leisure: RETIRED. WALKS ABOUT 2 MILES A DAY. Disability: NO Present symptoms: PAIN ON THE OUTSIDE OF L KNEE TO MID LOWER LEG. PATIENT DENIES NUMBNESS OR TINGLING IN LLE. PATIENT DENIES LBP Present since: MONTHS AGO STATES SHE ISN'T SURE HOW MANY MONTHS AGO. 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 SHE STATES HER KNEE PAIN WAS NOT THE REASON SHE STOPPED EXERCISING THERE. PATIENT DENIES KNEE CLICKING OR POPPING. Pain Scale: WORST 8-9/10, LEAST 3/10 Currently: 8-9/10 (DID NOT TAKE IBUPROFEN BEFORE COMING TO PT TODAY). Is it getting better, worse or staying the same: STAYING THE SAME Commenced as a result of: NO APPARENT REASON Symptoms at onset: SAME Worse: WALKING 2 MILES, STANDING UP AFTER SITTING, MOVING AROUND IN GENERAL Better: Anti-inflammatories , ICE AND HEAT BUT DOESN'T TAKE THE PAIN AWAY COMPLETELY. Patient reports Massage and stretching temporarily help the pain but it comes back. OTHER: PATIENT REPORTS SHE FEELS LIKE SHE HAS TRIED EVERYTHING INCLUDING MULTIPLE DIFFERENT TYPES OF SHOES AND OTC ORTHOTICS AND SHE STILL HAS THE PAIN. STATES ULTRASOUND HELPED HER PLANTAR FASCITIS IN THE PAST AND QUESTIONING IF IT WILL HELP HER KNEE. Disturbed sleep: SOMETIMES Previous history/Previous treatment: UNREMARKABLE Treatment this episode: OTC IBUPROFEN. NO INJECTIONS. Gait: THE PAIN LIMITS WALKING TO 2 MILES Imaging: L KNEE X-RAY - 03/12/23 - MILD DEGENERATIVE CHANGES MEDIAL COMPARTMENT L KNEE. PMH/Recent major surgery: HYPOTHYROIDISM, HTN, JUAN CTR Objective Objective: Sitting/Standing Posture: FAIR. SYMMETRICAL ILIAC CRESTS. NORMAL LORDOSIS. NO RELAVANT LATERAL SHIFT. Other Observations: INDEP GAIT AND TRANSFERS. MILD LIMP ON L LE. Sensory deficit: JUAN LE LIGHT TOUCH SENSATION GROSSLY INTACT AND SYMMETRICAL ROM deficit: MILD L IT BAND, HIP ER, HIP FLEXOR, HS AND GASTROC SOLEUS COMPLEX TIGHTNESS. Motor deficit: R LE 5/5. L LE: HIP 4-/5, KNEE EXT 4/5, KNEE FLEX 4-/5, ANKLE 5/5. Lumbar mvmt loss: flex - NIL ext - MOD R SG - MIN L SG - MIN PATIENT DENIES LOW BACK AND JUAN LE PAIN WITH LUMBAR ROM TESTING ALL PLANES. Core strength: FAIR Palpation: PATIENT WITH TENDERNESS WITH PALPATION OF THE LATERAL AND POSTERIOR ASPECTS OF THE L KNEE IN THE REGIONS OF THE DISTAL 1/3 OF THE ILIOTIBIAL BAND AND BICEP FEMORIS (LONG AND SHORT HEADS) DOWN TO THE REGION OF THE HEAD OF THE FIBULA. TREATMENT: US AT 1.3W/CM2, 50% (NON-THERMAL) X 8 MIN TO L LATERAL/POSTERIOR KNEE REGION WITH PATIENT IN SITTING. THER-ACT - HEP INSTRUCTION FOR 4 WAY SLR'S, STANDING TKE, WALL LEAN CALF STRETCHING AND CALF RAISES - WRITTEN HEP INSTRUCTIONS PROVIDED. PATIENT ABLE TO PERFORM ALL EX'S WITH GOOD TECHNIQUE AND GOOD TOLERANCE AFTER INSTRUCTION GIVEN. INSTUCTED TO START WITH ONE SET EA AT HOME AND INCREASE TO PRESCRIBED AMT'S TOLERATED. ALSO INSTRUCTED TO AVOID PAIN WITH INDEP EX AND ACTIVITIES. SUGGESTED MODIFYING WALKS IN TERMS OF DECREASED PACE AND DISTANCE NEEDED TO DECREASE PAIN BUT CONTINUE TOLERATED. Special Tests L Knee Juan Jose - Meniscus: Negative L Knee Chelsea - ACL: Negative L Knee Anterior Drawer - ACL: Negative L Knee Posterior Drawer - PCL: Negative L Knee Valgus - MCL: Negative L Knee Varus - LCL: Negative L Knee Patellar Grind - PFS: Negative Balance/Special Test Scores Lower Extremity Functional Score: 28 Goals Goal 1:: PATIENT WILL REPORTS 50% DECREASED L KNEE PAIN WITH NORMAL DAILY ACTIVITIES. Goal Time Frame: 4-6 Weeks Goal 2:: LEFS SCORE WILL IMPROVE BY 10 POINTS. Goal Time Frame: 4-6 Weeks Goal 3:: PATIENT WILL BE INDEP WITH A HEP FOR CONTINUED IMPROVEMENT ONCE FORMAL PHYSICAL THERPAY CONCLUDES Goal Time Frame: 4-6 Weeks Anticipated Interventions Patient/Client Instruction: Educate patient on: Condition, Plan of Care and Risk Factors For the Purpose of:: To improve self management Therapeutic Exercise to Include: Strength training and Flexibilty training For the Purpose of:: To improve muscle performance and motor function, To increase tolerance to activity/condition/position, To improve ability of physical actions for home/community/work/leisure and To improve gait and locomotor functions Manual Therapy Techniques to Include: Soft tissue mobilization For the Purpose of:: To decrease pain and To improve nutrient delivery to tissue Ultrasound (thermal/non thermal): Yes (NON-THERMAL) For the Purpose of:: To decrease pain and To improve nutrient delivery to tissue Text: Thank you for the opportunity to evaluate your patient. For Medicare and Medicare HMO plans, please review the plan of care and approve it. It will need to be FAXED BACK to us at [phone] for Medicare purposes. For Medicare only, by signing this I certify the plan of care. Please let me know if there are questions or concerns regarding this plan of care. Physician Signature: Date:
== END 2023-04-09 19:00 | disposition home or self-care (01) ==
LOC: PT 11:00
PROVIDERS: PCP Internal Medicine; Visit Provider Internal Medicine
DX: M25.562 Pain in left knee (principal)
CPT/HCPCS: 97035; 97110; 97162; 97530

== ENCOUNTER → 2023-10-11 | Outpatient (CLI) | payer MEDICARE, SELFPAY ==
--- NOTE | 2023-10-11 12:17 | BI_ITS ---
MAMMOGRAPHY - BILATERAL SCREENING REASON FOR EXAM: Female, 68 years old. Routine annual screening examination. PERTINENT HISTORY: Non-contributory. TECHNIQUE: Digital bilateral breast robert (3D mammographic acquisition) in the CC and MLO projections. 2-D mediolateral oblique (MLO) and craniocaudad (CC) views of both breasts were obtained. CAD: Full Field Digital Mammography with Computer Added Detection was performed. COMPARISON: Comparison is made with prior study September 25, 2022 and August 17, 2021. FINDINGS: Breast Composition: The breasts are heterogeneously dense, which may obscure small masses. There are no dominant masses or suspicious calcifications. Stable benign-appearing bilateral axillary lymph nodes. No other significant abnormalities are identified. There has been no significant change since the prior study. BI/SCRN MAMM (CAD)W/ROBERT BILAT IMPRESSION: Stable bilateral screening mammogram. Yearly follow-up mammogram recommended. (A) ASSESSMENT CATEGORY: BIRADS Category 2: Benign. A letter regarding these results will be sent to the patient by the facility within 30 days. Approximately 10% of breast cancers are not detected by mammography. A normal mammogram should not delay biopsy of a clinically suspicious abnormality. [id number] Electronically Signed: Jonathan Law MD at 13:02 EDT ,
--- NOTE | 2023-10-11 12:36 | US_ITS ---
EXAM: US SOFT TISSUES HEAD AND NECK, THYROID CLINICAL INDICATION: thyroid nodule TECHNIQUE: Greyscale and color doppler imaging was performed of the thyroid gland. COMPARISON: No relevant prior studies available. FINDINGS: LEFT THYROID LOBE: The left thyroid lobe measures 3.8 x 1.4 x 1.4 cm. Within the left thyroid lobe, there is a 4 mm nodule. This nodule is solid or almost completely solid, hypoechoic, [id number], ill-defined and contains no echogenic foci. TI-RADS points: 4. TI-RADS category: TR4. This nodule is moderately suspicious but no FNA or follow-up is necessary given the small size of this nodule. Within the left thyroid lobe, there is an additional 6 mm nodule. This nodule is solid or almost completely solid, hypoechoic, [id number], ill-defined and contains no echogenic foci. TI-RADS points: 4. TI-RADS category: TR4. This nodule is moderately suspicious but no FNA or follow-up is necessary given the small size of this nodule. RIGHT THYROID LOBE: The right thyroid lobe measures 3.9 x 1.3 x 1.3 cm. Within the right thyroid lobe, there is a 4 mm nodule. This nodule is solid or almost completely solid, hypoechoic, [id number], ill-defined and contains no echogenic foci. TI-RADS points: 4. TI-RADS category: TR4. This nodule is moderately suspicious but no FNA or follow-up is necessary given the small size of this nodule. ISTHMUS: The thyroid isthmus measures 0.2 cm. No thyroid nodules are present. US/Thyroid IMPRESSION: There is a single right and there are 2 left thyroid nodules. These are each TI-RADS category 4 lesions and are moderately suspicious but no FNA or follow-up is necessary given the small size of the nodules. Electronically Signed: Justo Plummer DO at 19:55 EDT ,
== END | disposition home or self-care (01) ==
LOC: US 12:17
PROVIDERS: PCP Internal Medicine; Referring Provider Internal Medicine; Visit Provider Internal Medicine
DX: Z12.31 Encounter for screening mammogram for malignant neoplasm of breast (principal); E04.1 Nontoxic single thyroid nodule
CPT/HCPCS: 76536; 77063; 77067

== ENCOUNTER → 2024-09-11 | Outpatient (CLI) | payer MEDICARE, SELFPAY ==
--- NOTE | 2024-09-11 08:10 | CT_ITS ---
PROCEDURE: CHEST WITHOUT CONTRAST 09/11/2024 REASON FOR EXAM: CT OF CHEST WITHOUT CONTRAST TECHNIQUE: Chest CT without contrast. Coronal and Sagittal reconstruction series were provided. One or more dose reduction techniques were used (e.g., Automated exposure control, adjustment of the mA and/or kV according to patient size, use of iterative reconstruction technique COMPARISON: 10/07/2018; 07/30/2019 FINDINGS: Lungs/Pleura:The lungs are clear. There are a few tiny pleural-based pulmonary nodules in the lung bases. For example, in the left lower lobe measuring 3.3 mm on image 61 of series 4. A nodule in the right lower lobe on image 70 of series 4 measures 5 mm. No pleural effusion or pneumothorax. Cardiovascular:The heart is normal in size.Possible coronary artery stent versus calcification. Mild calcifications are noted.The aorta and pulmonary arteries are unremarkable. Pericardium:No effusion. Mediastinum:Unremarkable. Lymph nodes:No lymph node enlargement identified on this noncontrast CT. Bones:No acute osseous abnormality.Mild multilevel degenerative changes are present in the visualized spine. Soft tissues:Unremarkable. Upper abdomen:Unremarkable. CT/Chest without Contrast IMPRESSION: 1. A couple of stable bibasilar, pleural-based pulmonary nodules measuring up t o 5 mm. These most likely represent benign findings and no specific follow-up is recommended, and can be based upon pulmon dashawn risk factors. [facility]
== END | disposition home or self-care (01) ==
PROVIDERS: PCP Internal Medicine; Referring Provider Internal Medicine; Visit Provider Internal Medicine
DX: R91.1 Solitary pulmonary nodule (principal)
CPT/HCPCS: 71250

== ENCOUNTER → 2024-10-04 | Outpatient (CLI) | payer MEDICARE, SELFPAY ==
[2024-10-04 07:57] LABS: Absolute Lymphocyte Count 1.92 X10^3/uL (0.83-4.51); Absolute Neutrophil Count 4.4 X10^3/uL (2.0-7.7); Basophil# 0.06 X10^3/uL; Basophil% 0.8 % (0-1); Eosinophil# 0.28 X10^3/uL; Eosinophils% 3.8 % (0-5); Hematocrit 40.1 % (37-47); Hemoglobin 13.6 g/dL (12.0-15.0); Lymphocyte # 1.92 X10^3/ul (0.83-4.51); Lymphocyte % 26.1 % (19-41); Mean Corp Hgb Conc 33.9 g/dL (32-36); Mean Corpuscular Hgb 29.6 pg (27.0-32.0); Mean Corpuscular Volume 87.2 fL (81-99); Mean Platelet Vol. 9.2 fl (6.2-12.0); Monocyte# 0.64 X10^3/uL; Monocyte% 8.7 % (0-10); NRBC Flagged by Analyzer 0 % (0-5); Neutrophil # 4.42 X10^3/uL (2.7-7.7); Neutrophil % 59.9 % (47-70); Platelet Count 325 K/mm3 (150-450); RBC Distribution Width SD 45.1 fl (35.1-43.9); White Blood Count 7.4 K/mm3 (4.4-11.0)
[2024-10-04 12:37] LABS: Cholesterol 231 mg/dL (<=200); High Density Lipoprotein 40 mg/dL; Low Density Lipoprotein Calc. 165 mg/dL; Triglycerides 130 mg/dL; Very Low Density Lipoprotein 26 mg/dL (5-40); cholesterol:hdl ratio screen 5.75
[2024-10-04 13:44] LABS: ALB/GLOB Ratio 1.6 RATIO (0.9-2.4); AST(SGOT) 18 U/L (<=31); Alanine Aminotransfer ALT/SGPT 14 U/L (<=34); Albumin, Serum 4.1 g/dL (3.4-4.8); Alkaline Phosphatase 68 U/L (35-104); Anion Gap 10 (5-15); BUN 15 mg/dL (4-19); Calcium,Total 9.3 mg/dL (7.6-11.0); Chloride 105 mmol/L (98-108); Creatinine, Serum 0.83 mg/dL (0.70-1.20); EST Glomerular Filtration Rate 78 (>60); Globulin 2.6 g/dL (2.2-4.2); Glucose 92 mg/dL (70-99); Potassium 4.1 mmol/L (3.3-5.1); Protein, Total 6.7 g/dL (5.9-8.4); Sodium Level 140 mmol/L (133-145); Total Bilirubin 0.39 mg/dL (0.00-1.30)
[2024-10-04 13:48] LABS: Vitamin D,25 Hydroxy 47.4 ng/mL (30-100)
== END | disposition home or self-care (01) ==
LOC: LAB 07:29
PROVIDERS: PCP Internal Medicine; Referring Provider Internal Medicine; Visit Provider Internal Medicine
DX: I10 Essential (primary) hypertension (principal); E55.9 Vitamin D deficiency, unspecified; E03.9 Hypothyroidism, unspecified; E78.49 Other hyperlipidemia
CPT/HCPCS: 36415; 80053; 80061; 82306; 84443; 85025

== ENCOUNTER → 2024-12-30 | Outpatient (CLI) | payer MEDICARE, SELFPAY ==
--- NOTE | 2024-12-30 10:02 | BD_ITS ---
PROCEDURE: DEXA BONE DENSITY STUDY 12/30/2024 REASON FOR EXAM: F, age 69 y/o . Postmenopausal. TECHNIQUE: DEXA BONE DENSITY STUDY COMPARISON: Prior study dated December 26, 2022. FINDINGS: BMD and T-SCORES Lumbar spine: 0.725 g/cm2, T-score -3.0 Levels: L1 through L4 Change from prior: Loss of 3%. Left femoral neck: 0.5.4 g/cm2, T-score -3.0 Femoral neck comparison data not recommended for monitoring change. Left total hip: 0.647 g/cm2, T-score -2.4 Change from prior: Loss of 14.6%. Right femoral neck: 0.496 g/cm2, T-score -3.2 Femoral neck comparison data not recommended for monitoring change. Right total hip: 0.676 g/cm2, T-score -2.2 Change from prior: Loss of 0.1%. The World Health Organization has defined the following categories based on bone density: Normal bone density: T-score equal to or greater than -1.0 Osteopenia: T-score between -1.0 and -2.5 Osteoporosis: T-score equal to or less than -2.5 The patient does meet the pharmacological treatment recommendations for prevention of osteoporosis. BD/Dexa Bone Density Study IMPRESSION: OSTEOPOROSIS. Recommend follow-up as clinically warranted. Reading Location: [id number]
--- NOTE | 2024-12-30 10:02 | BI_ITS ---
EXAM: SCRN MAMM (CAD)W/ROBERT BILAT DATE: 12/30/2024 CLINICAL HISTORY: F, Age 69 y/o , SCREENING No family history. TECHNIQUE: SCRN MAMM (CAD)W/ROBERT BILAT COMPARISON: Prior exam(s) dated October 11, 2023.. FINDINGS: TISSUE DENSITY: The breasts are heterogeneously dense, which may obscure small masses. Bilateral Breast Mammographic Findings: No significant masses, calcifications or other abnormalities are identified. Stable bilateral fat containing axillary lymph nodes. No suspicious masses, areas of developing architectural distortion, or suspicious calcifications. There has been no significant interval change. BI/SCRN MAMM (CAD)W/ROBERT BILAT IMPRESSION: Stable examination. OVERALL FINAL ASSESSMENT BI-RADS 2: BENIGN RECOMMENDATION: Routine annual follow-up in 1 Year A letter with findings and recommendations will be mailed to the patient. Reading Location: [id number]
--- NOTE | 2024-12-30 10:02 | BI_ITS ---
EXAM: SCRN MAMM (CAD)W/ROBERT BILAT DATE: 12/30/2024 CLINICAL HISTORY: F, Age 69 y/o , SCREENING No family history. TECHNIQUE: SCRN MAMM (CAD)W/ROBERT BILAT COMPARISON: Prior exam(s) dated October 11, 2023.. FINDINGS: TISSUE DENSITY: The breasts are heterogeneously dense, which may obscure small masses. Bilateral Breast Mammographic Findings: No significant masses, calcifications or other abnormalities are identified. Stable bilateral fat containing axillary lymph nodes. No suspicious masses, areas of developing architectural distortion, or suspicious calcifications. There has been no significant interval change. BI/SCRN MAMM (CAD)W/ROBERT BILAT IMPRESSION: Stable examination. OVERALL FINAL ASSESSMENT BI-RADS 2: BENIGN RECOMMENDATION: Routine annual follow-up in 1 Year A letter with findings and recommendations will be mailed to the patient. Reading Location: [id number]
--- NOTE | 2024-12-30 10:02 | BD_ITS ---
PROCEDURE: DEXA BONE DENSITY STUDY 12/30/2024 REASON FOR EXAM: F, age 69 y/o . Postmenopausal. TECHNIQUE: DEXA BONE DENSITY STUDY COMPARISON: Prior study dated December 26, 2022. FINDINGS: BMD and T-SCORES Lumbar spine: 0.725 g/cm2, T-score -3.0 Levels: L1 through L4 Change from prior: Loss of 3%. Left femoral neck: 0.5.4 g/cm2, T-score -3.0 Femoral neck comparison data not recommended for monitoring change. Left total hip: 0.647 g/cm2, T-score -2.4 Change from prior: Loss of 14.6%. Right femoral neck: 0.496 g/cm2, T-score -3.2 Femoral neck comparison data not recommended for monitoring change. Right total hip: 0.676 g/cm2, T-score -2.2 Change from prior: Loss of 0.1%. The World Health Organization has defined the following categories based on bone density: Normal bone density: T-score equal to or greater than -1.0 Osteopenia: T-score between -1.0 and -2.5 Osteoporosis: T-score equal to or less than -2.5 The patient does meet the pharmacological treatment recommendations for prevention of osteoporosis. BD/Dexa Bone Density Study IMPRESSION: OSTEOPOROSIS. Recommend follow-up as clinically warranted. Reading Location: [id number]
== END | disposition home or self-care (01) ==
LOC: OPBD 10:00
PROVIDERS: PCP Internal Medicine; Referring Provider Internal Medicine; Visit Provider Internal Medicine
DX: Z12.31 Encounter for screening mammogram for malignant neoplasm of breast (principal); Z78.0 Asymptomatic menopausal state
CPT/HCPCS: 77063; 77067; 77080

== ENCOUNTER → 2025-04-11 | Outpatient (CLI) | payer MEDICARE, SELFPAY ==
[2025-04-11 08:56] LABS: Hematocrit 42.2 % (37-47); Hemoglobin 14.2 g/dL (12.0-15.0); Immature Granulocytes Count 0.030 X10^3/uL (0.0-0.0); Mean Corp Hgb Conc 33.6 g/dL (32-36); Mean Corpuscular Volume 87.2 fL (81-99); Mean Platelet Vol. 9.5 fl (6.2-12.0); NRBC Flagged by Analyzer 0 % (0-5); Platelet Count 327 K/mm3 (150-450); RBC Distribution Width CV 13.3 % (11.6-14.6); RBC Distribution Width SD 42.6 fl (35.1-43.9); Red Blood Count 4.84 M/mm3 (4.2-5.4); White Blood Count 7.3 K/mm3 (4.4-11.0)
[2025-04-11 09:36] LABS: AST(SGOT) 18 U/L (<=31); Alanine Aminotransfer ALT/SGPT 15 U/L (<=34); Albumin, Serum 4.3 g/dL (3.4-4.8); Alkaline Phosphatase 75 U/L (35-104); Anion Gap 10 (5-15); BUN 14 mg/dL (4-19); BUN/Creat Ratio 16.3 RATIO (10-20); Calcium,Total 9.6 mg/dL (7.6-11.0); Carbon Dioxide 27.4 mmol/L (21.0-32.0); Chloride 104 mmol/L (98-108); Cholesterol 159 mg/dL (<=200); Globulin 2.8 g/dL (2.2-4.2); Glucose 99 mg/dL (70-99); Low Density Lipoprotein Calc. 93 mg/dL; Potassium 4.2 mmol/L (3.3-5.1); Triglycerides 75 mg/dL; Very Low Density Lipoprotein 15 mg/dL (5-40); cholesterol:hdl ratio screen 3.08
[2025-04-11 09:39] LABS: FOLATES,SERUM (FOLIC ACID) 13.40 ng/mL (4.60-34.80)
[2025-04-11 10:05] LABS: Vitamin B12 2903 pg/mL (180-914); Vitamin D,25 Hydroxy 52.7 ng/mL (30-100)
== END | disposition home or self-care (01) ==
LOC: MTLAB 08:05 → LAB 08:10
PROVIDERS: PCP Internal Medicine; Referring Provider Internal Medicine; Visit Provider Internal Medicine
DX: L80 Vitiligo (principal); I10 Essential (primary) hypertension; E78.49 Other hyperlipidemia; E03.9 Hypothyroidism, unspecified; E55.9 Vitamin D deficiency, unspecified
CPT/HCPCS: 36415; 80053; 80061; 82306; 82607; 82746; 84443; 85025